=== PATIENT | female | born 1960 | race Caucasian/White ===

== ENCOUNTER 2020-02-22 09:45 | Outpatient (RCR) | payer OTHER, SELFPAY ==
--- NOTE | 2020-01-23 16:12 | PT.OIE ---
Current Diagnoses Pain in right elbow (01/23/20) Past Medical History (Last Reviewed 01/08/20 @ 07:31 by BIJAN Zuleta) Family history of colonic polyps (Acute) Skin lesion (Acute) Tennis elbow (Acute) Visit Care Team Role Provider Type BIJAN Zuleta Attending Provider Advanced Telecommunications Field Engineer Primary Care Provider Referring Provider Specialty: Medical Address: [address] [place] [address], [facility] Email: [email or web address] Physical Therapy Initial Evaluation PT-OP-A Visit Information Start: 01/21/20 07:31 Freq: Status: Active Protocol: Document 01/23/20 13:53 MB (Rec: 01/23/20 14:08 MB [id number]) Out-Patient Physical Therapy Visit Information Visit Information Visit Type Initial Evaluation Visit Note Uniform Medical [employer], managed by [facility] Pt arrives late to evaluation Visit Start Time 13:53 Visit Stop Time 14:30 Total Visit Minutes 37 Visit Number 1 Evaluation Information Evaluation Date 01/23/20 PT-OP-B Current Condition Start: 01/21/20 07:31 Freq: Status: Active Protocol: Document 01/23/20 13:53 MB (Rec: 01/23/20 14:08 MB [id number]) Current Condition History of Current Condition Onset Date 2-3 years Current Complaints Right lateral elbow pain with occ shooting pain. Pain up to 7/10 History of Current Condition Pt reports history of right elbow pain. She had three cortisone injections. The first helped and the second and third weren't as good as the first. The final injection was 6 weeks ago. 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 She has stabbing pain directly over the right epicondyle every or every other night. She sleeps on her right side with her right hand up under her pillow . She can't do yoga and sun salutations (cobra down). She moved in October and it exacerbated it. She has occ neck and shoulder pain. She cannot play pickle ball or tennis. She hasn't played for a year and a half. 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 Prior Treatments and Tests 3 cortisone injections Treatment Goals Patient/Caregiver Goals Pt's goal for therapy is to get back to yoga. PT-OP-C Subjective Start: 01/21/20 07:31 Freq: Status: Active Protocol: Document 01/23/20 13:53 MB (Rec: 01/23/20 14:32 MB [id number]) OP-PT Subjective Patient Comments Patient Comments See history of current condition Patient Questionnaires Quick Dash- Upper Extremity Quick Dash UE Impairment 20 to 39% Impaired (Score 20- 39) PT-OP-J Posture/Palpation/Skin Start: 01/21/20 07:31 Freq: Status: Active Protocol: Document 01/23/20 13:53 MB (Rec: 01/23/20 15:56 MB [id number]) Posture Evaluation Comments Posture Comments Forward head, rounded shoulders, increased lumbar lordosis, anterior pelvis, right iliac crest higher than the left Skin Assessment Other Assessments Skin Assessment Comments R elbow has ecchymosis over the lateral epicondyle which pt states is d/t injection 6 weeks ago PT-OP-K Range of Motion Start: 01/21/20 07:31 Freq: Status: Active Protocol: Document 01/23/20 13:53 MB (Rec: 01/23/20 15:57 MB [id number]) Cervical Spine Range of Motion Cervical Spine Active Testing Position Sitting Comments All ranges normal: flexion, extension, B SB and B rotation PT-OP-M Strength Start: 01/21/20 07:31 Freq: Status: Active Protocol: Document 01/23/20 13:53 MB (Rec: 01/23/20 16:11 MB [id number]) Shoulder Strength Shoulder Manual Muscle Testing Left Flexion 5 Normal Abduction (C5) 5 Normal External Rotation 5 Normal Internal Rotation 5 Normal Right Flexion 4 Good Abduction (C5) 5 Normal External Rotation 4 Good Internal Rotation 5 Normal Elbow/Forearm Strength Elbow and Forearm Manual Muscle Testing Left Flexion (C6) 5 Normal Extension (C7) 5 Normal Pronation 5 Normal Supination 5 Normal Right Flexion (C6) 5 Normal Extension (C7) 5 Normal Pronation 4 Good Supination 4 Good Comments Pt reports 3/10 pain with supination MMT Wrist Strength Wrist Manual Muscle Testing Right Flexion (C7) 5 Normal Extension (C6) 4 Good Comments Pt reports 3/10 pain with extension MMT Hand Senior Planning Analyst/Pinch Strength Hand Dominance Hand Dominance Right Hand Strength Left Comments 58 lb, 51 lb, 50 lb Right Comments 58 lb, 50 lb, 50 lb and no real c/o increased pain PT-OP-Q Treatments Start: 01/21/20 07:31 Freq: Status: Active Protocol: Document 01/23/20 13:53 MB (Rec: 01/23/20 16:11 MB [id number]) Self-Care/Home Management Treatment Education Other Education Proper sleeping position with towel roll support at neck in pillow, use of pillow between arms for support, wrist splint to wear loosely for sleeping to help with sleeping position and quick icing and PT quick ices right epicondyle today Lymphedema Treatment Other Other Pt denies sensory changes PT-OP-T Assessment and Plan Start: 01/21/20 07:31 Freq: Status: Active Protocol: Document 01/23/20 13:53 MB (Rec: 01/23/20 16:11 MB [id number]) Physical Therapy Assessment Rehab Potential Rehabilitation Potential Good Evaluation Complexity Number of Personal Factors/Comorbidities 1-2 Number of Body Systems Impaired 1-2 Clinical Presentation at Evaluation Stable Impairments Impairments Pain,Posture,Soft Tissue Mobility,Strength Goals 5 Pharmacy Customer Care Specialist Goal (LTG) Pt will perform progressive HEP with I including postural, flexibility, stabilization and strengthening exercises to improve strength and decrease pain by 03/25/2020. LTG Duration 8 weeks 4 Snf Goal (LTG) Pt will present with improved RUE strength to 5/5 shoulder flexion and ER, elbow supination and wrist extension to allow improved dominant hand use by 03/25/2020. LTG Duration 8 weeks 3 Snf Goal (LTG) Pt will report an overall 75% improvement in right elbow pain with sleeping by 2019. LTG Duration 8 weeks 2 Snf Goal (LTG) Pt will present with improved right field technical assistant strength over three trials to at least 60 lbs to reflect improved dominant hand strength by 03/25/2020. LTG Duration 8 weeks 1 Snf Goal (LTG) Pt will present with an improved QuickDASH score to reflect no more than 5% impairment to reflect improved function and less pain by . LTG Duration 8 weeks Assessment Summary Assessment Pt is a 59 y/o female presenting with chronic right elbow pain. She has also had three cortisone injections. She reports pain directly over the epicondyle and it is provoked with MMT elbow supination and wrist extension . She reports occ stabbing pain at night that awakens her . She performs activities that exacerbate her pain such as working on her boat. She would like to get back to yoga. Pt will benefit from PT to improve posture, flexibility, strength and pain. Barriers include chronicity of sxs and possible articular cartilage changes after three steroid injections. Physical Therapy Plan Frequency and Duration Frequency of Treatment 2x/Week Duration of Treatment 8 weeks Plan of Care Start Date 01/23/20 Plan of Care End Date 03/25/20 Therapeutic Interventions Therapeutic Interventions Aquatic Therapy,Canalithic Repositioning,Home Exercise Program,Joint Mobilizations, Manual Therapy,Neuromuscular Re-education,Patient/Caregiver Education,Self-Care/Home Management,Soft Tissue Mobilization,Taping, Therapeutic Exercises Modalities Cold Pack/Ice Massage,Electric Stimulation,Hot Packs, Ultrasound Next Visit Focus/Plan Next Note Type Treatment Note Next Visit Plan Initate manual work and exercises
--- NOTE | 2020-01-23 16:12 | PT.OPPOC ---
Physical, Occupational & Speech Therapy At [facility] Current Diagnoses Pain in right elbow (01/23/20) Visit Care Team Role Provider Type BIJAN Zuleta Attending Provider Advanced Poultry Debeaker Primary Care Provider Referring Provider Specialty: Medical Address: [address] [place] [address], [id number] Email: [email or web address] Plan Of Care PT-OP-T Assessment and Plan Start: 01/21/20 07:31 Freq: Status: Active Protocol: Document 01/23/20 13:53 MB (Rec: 01/23/20 16:11 MB [id number]) Physical Therapy Assessment Rehab Potential Rehabilitation Potential Good Evaluation Complexity Number of Personal Factors/Comorbidities 1-2 Number of Body Systems Impaired 1-2 Clinical Presentation at Evaluation Stable Impairments Impairments Pain,Posture,Soft Tissue Mobility,Strength Goals 5 Fdc Goal (LTG) Pt will perform progressive HEP with I including postural, flexibility, stabilization and strengthening exercises to improve strength and decrease pain by 03/25/2020. LTG Duration 8 weeks 4 Fdc Goal (LTG) Pt will present with improved RUE strength to 5/5 shoulder flexion and ER, elbow supination and wrist extension to allow improved dominant hand use by 03/25/2020. LTG Duration 8 weeks 3 Fdc Goal (LTG) Pt will report an overall 75% improvement in right elbow pain with sleeping by 2019. LTG Duration 8 weeks 2 Hand Printed Circuit Board Assembler Goal (LTG) Pt will present with improved right jewellery designer strength over three trials to at least 60 lbs to reflect improved dominant hand strength by 03/25/2020. LTG Duration 8 weeks 1 Hand Printed Circuit Board Assembler Goal (LTG) Pt will present with an improved QuickDASH score to reflect no more than 5% impairment to reflect improved function and less pain by . LTG Duration 8 weeks Assessment Summary Assessment Pt is a 59 y/o female presenting with chronic right elbow pain. She has also had three cortisone injections. She reports pain directly over the epicondyle and it is provoked with MMT elbow supination and wrist extension . She reports occ stabbing pain at night that awakens her . She performs activities that exacerbate her pain such as working on her boat. She would like to get back to yoga. Pt will benefit from PT to improve posture, flexibility, strength and pain. Barriers include chronicity of sxs and possible articular cartilage changes after three steroid injections. Physical Therapy Plan Frequency and Duration Frequency of Treatment 2x/Week Duration of Treatment 8 weeks Plan of Care Start Date 01/23/20 Plan of Care End Date 03/25/20 Therapeutic Interventions Therapeutic Interventions Aquatic Therapy,Canalithic Repositioning,Home Exercise Program,Joint Mobilizations, Manual Therapy,Neuromuscular Re-education,Patient/Caregiver Education,Self-Care/Home Management,Soft Tissue Mobilization,Taping, Therapeutic Exercises Modalities Cold Pack/Ice Massage,Electric Stimulation,Hot Packs, Ultrasound Next Visit Focus/Plan Next Note Type Treatment Note Next Visit Plan Initate manual work and exercises Plan of Care Dates Plan of Care Start Date 01/23/20 Plan of Care End Date 03/25/20 Electronically Signed by: Annie Smith PT 01/23/20 [id number] Please Sign and Return: I have reviewed this Plan of Care and certify that the skilled therapy services above are required to meet the patient?s needs. Physician Signature Date Printed Name and Credentials Clinical Instructor Signature Printed Name and Credentials
--- NOTE | 2020-01-28 14:10 | PT.OTN ---
Current Diagnoses Pain in right elbow (01/28/20) Physical Therapy Treatment Note PT-OP-A Visit Information Start: 01/21/20 07:31 Freq: Status: Active Protocol: Document 01/28/20 13:30 MB (Rec: 01/28/20 14:00 MB [id number]) Out-Patient Physical Therapy Visit Information Visit Information Visit Type Treatment Note Visit Start Time 13:30 Visit Stop Time 14:10 Total Visit Minutes 40 Visit Number 2 PT-OP-B Current Condition Start: 01/21/20 07:31 Freq: Status: Active Protocol: Document 01/23/20 13:53 MB (Rec: 01/23/20 14:08 MB [id number]) Current Condition History of Current Condition Onset Date 2-3 years Current Complaints Right lateral elbow pain with occ shooting pain. Pain up to 7/10 History of Current Condition Pt reports history of right elbow pain. She had three cortisone injections. The first helped and the second and third weren't as good as the first. The final injection was 6 weeks ago. 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 She has stabbing pain directly over the right epicondyle every or every other night. She sleeps on her right side with her right hand up under her pillow . She can't do yoga and sun salutations (cobra down). She moved in October and it exacerbated it. She has occ neck and shoulder pain. She cannot play pickle ball or tennis. She hasn't played for a year and a half. 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 Prior Treatments and Tests 3 cortisone injections Treatment Goals Patient/Caregiver Goals Pt's goal for therapy is to get back to yoga. PT-OP-C Subjective Start: 01/21/20 07:31 Freq: Status: Active Protocol: Document 01/28/20 13:30 MB (Rec: 01/28/20 14:00 MB [id number]) OP-PT Subjective Patient Comments Patient Comments Pt was only able to ice once as they were on the boat over the weekend. She did not have room to sleep with pillow between her arms. PT-OP-J Posture/Palpation/Skin Start: 01/21/20 07:31 Freq: Status: Active Protocol: Document 01/23/20 13:53 MB (Rec: 01/23/20 15:56 MB [id number]) Posture Evaluation Comments Posture Comments Forward head, rounded shoulders, increased lumbar lordosis, anterior pelvis, right iliac crest higher than the left Skin Assessment Other Assessments Skin Assessment Comments R elbow has ecchymosis over the lateral epicondyle which pt states is d/t injection 6 weeks ago PT-OP-K Range of Motion Start: 01/21/20 07:31 Freq: Status: Active Protocol: Document 01/23/20 13:53 MB (Rec: 01/23/20 15:57 MB [id number]) Cervical Spine Range of Motion Cervical Spine Active Testing Position Sitting Comments All ranges normal: flexion, extension, B SB and B rotation PT-OP-M Strength Start: 01/21/20 07:31 Freq: Status: Active Protocol: Document 01/23/20 13:53 MB (Rec: 01/23/20 16:11 MB [id number]) Shoulder Strength Shoulder Manual Muscle Testing Left Flexion 5 Normal Abduction (C5) 5 Normal External Rotation 5 Normal Internal Rotation 5 Normal Right Flexion 4 Good Abduction (C5) 5 Normal External Rotation 4 Good Internal Rotation 5 Normal Elbow/Forearm Strength Elbow and Forearm Manual Muscle Testing Left Flexion (C6) 5 Normal Extension (C7) 5 Normal Pronation 5 Normal Supination 5 Normal Right Flexion (C6) 5 Normal Extension (C7) 5 Normal Pronation 4 Good Supination 4 Good Comments Pt reports 3/10 pain with supination MMT Wrist Strength Wrist Manual Muscle Testing Right Flexion (C7) 5 Normal Extension (C6) 4 Good Comments Pt reports 3/10 pain with extension MMT Hand Outside Machinist Supervisor/Pinch Strength Hand Dominance Hand Dominance Right Hand Strength Left Comments 58 lb, 51 lb, 50 lb Right Comments 58 lb, 50 lb, 50 lb and no real c/o increased pain PT-OP-Q Treatments Start: 01/21/20 07:31 Freq: Status: Active Protocol: Document 01/28/20 13:30 MB (Rec: 01/28/20 14:00 MB [id number]) Therapeutic Exercises Supine Exercises Thoracic mobility horizontally over foam roller Comments Segmentally, support head with hands Pool noodle thoracic mobility and UE stretches--Ys, Ts, pect stretch Supine Exercise Name Pt to use 6 foam roller Comments 10 reps each Standing Exercises MWM infraspinatus, STM lats and intrascapular area racquet ball Comments Ed and performed today Manual Therapy Treatment Other Other Manual Treatments STM right forearm extensors and flexors, also MWM with PT hold trigger point and pt performing active wrist pronation and supination PT-OP-T Assessment and Plan Start: 01/21/20 07:31 Freq: Status: Active Protocol: Document 01/28/20 13:30 MB (Rec: 01/28/20 14:00 MB [id number]) Physical Therapy Assessment Rehab Potential Rehabilitation Potential Good Evaluation Complexity Number of Personal Factors/Comorbidities 1-2 Number of Body Systems Impaired 1-2 Clinical Presentation at Evaluation Stable Impairments Impairments Pain,Posture,Soft Tissue Mobility,Strength Goals 5 Long-Term Goal (LTG) Pt will perform progressive HEP with I including postural, flexibility, stabilization and strengthening exercises to improve strength and decrease pain by 03/25/2020. LTG Duration 8 weeks 4 Supervisor Water Softener Service Goal (LTG) Pt will present with improved RUE strength to 5/5 shoulder flexion and ER, elbow supination and wrist extension to allow improved dominant hand use by 03/25/2020. LTG Duration 8 weeks 3 Supervisor Water Softener Service Goal (LTG) Pt will report an overall 75% improvement in right elbow pain with sleeping by 2019. LTG Duration 8 weeks 2 Long-Term Goal (LTG) Pt will present with improved right manager of international strength over three trials to at least 60 lbs to reflect improved dominant hand strength by 03/25/2020. LTG Duration 8 weeks 1 Supervisor Water Softener Service Goal (LTG) Pt will present with an improved QuickDASH score to reflect no more than 5% impairment to reflect improved function and less pain by . LTG Duration 8 weeks Assessment Summary Assessment Progressed flexibility exercises today and will con't to progress and add strengthening. Physical Therapy Plan Frequency and Duration Frequency of Treatment 2x/Week Duration of Treatment 8 weeks Plan of Care Start Date 01/23/20 Plan of Care End Date 03/25/20 Therapeutic Interventions Therapeutic Interventions Aquatic Therapy,Canalithic Repositioning,Home Exercise Program,Joint Mobilizations, Manual Therapy,Neuromuscular Re-education,Patient/Caregiver Education,Self-Care/Home Management,Soft Tissue Mobilization,Taping, Therapeutic Exercises Modalities Cold Pack/Ice Massage,Electric Stimulation,Hot Packs, Ultrasound Next Visit Focus/Plan Next Note Type Treatment Note Next Visit Plan Progress exercises and manual work
--- NOTE | 2020-02-22 10:34 | PT.OTN ---
Current Diagnoses Pain in right elbow (02/22/20) Physical Therapy Treatment Note PT-OP-A Visit Information Start: 01/21/20 07:31 Freq: Status: Active Protocol: Document 02/22/20 09:50 MB (Rec: 02/22/20 10:29 MB [id number]) Out-Patient Physical Therapy Visit Information Visit Information Visit Type Treatment Note Visit Start Time 09:50 Visit Stop Time 10:30 Total Visit Minutes 40 Visit Number 3 PT-OP-B Current Condition Start: 01/21/20 07:31 Freq: Status: Active Protocol: Document 01/23/20 13:53 MB (Rec: 01/23/20 14:08 MB [id number]) Current Condition History of Current Condition Onset Date 2-3 years Current Complaints Right lateral elbow pain with occ shooting pain. Pain up to 7/10 History of Current Condition Pt reports history of right elbow pain. She had three cortisone injections. The first helped and the second and third weren't as good as the first. The final injection was 6 weeks ago. 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 She has stabbing pain directly over the right epicondyle every or every other night. She sleeps on her right side with her right hand up under her pillow . She can't do yoga and sun salutations (cobra down). She moved in October and it exacerbated it. She has occ neck and shoulder pain. She cannot play pickle ball or tennis. She hasn't played for a year and a half. 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 Prior Treatments and Tests 3 cortisone injections Treatment Goals Patient/Caregiver Goals Pt's goal for therapy is to get back to yoga. PT-OP-C Subjective Start: 01/21/20 07:31 Freq: Status: Active Protocol: Document 02/22/20 09:50 MB (Rec: 02/22/20 10:29 MB [id number]) OP-PT Subjective Patient Comments Patient Comments Pt had a lot going on. She took care of her sister after surgery. Her elbow is feeling better. She is cracking a lot in her back. PT-OP-J Posture/Palpation/Skin Start: 01/21/20 07:31 Freq: Status: Active Protocol: Document 01/23/20 13:53 MB (Rec: 01/23/20 15:56 MB [id number]) Posture Evaluation Comments Posture Comments Forward head, rounded shoulders, increased lumbar lordosis, anterior pelvis, right iliac crest higher than the left Skin Assessment Other Assessments Skin Assessment Comments R elbow has ecchymosis over the lateral epicondyle which pt states is d/t injection 6 weeks ago PT-OP-K Range of Motion Start: 01/21/20 07:31 Freq: Status: Active Protocol: Document 01/23/20 13:53 MB (Rec: 01/23/20 15:57 MB [id number]) Cervical Spine Range of Motion Cervical Spine Active Testing Position Sitting Comments All ranges normal: flexion, extension, B SB and B rotation PT-OP-M Strength Start: 01/21/20 07:31 Freq: Status: Active Protocol: Document 01/23/20 13:53 MB (Rec: 01/23/20 16:11 MB [id number]) Shoulder Strength Shoulder Manual Muscle Testing Left Flexion 5 Normal Abduction (C5) 5 Normal External Rotation 5 Normal Internal Rotation 5 Normal Right Flexion 4 Good Abduction (C5) 5 Normal External Rotation 4 Good Internal Rotation 5 Normal Elbow/Forearm Strength Elbow and Forearm Manual Muscle Testing Left Flexion (C6) 5 Normal Extension (C7) 5 Normal Pronation 5 Normal Supination 5 Normal Right Flexion (C6) 5 Normal Extension (C7) 5 Normal Pronation 4 Good Supination 4 Good Comments Pt reports 3/10 pain with supination MMT Wrist Strength Wrist Manual Muscle Testing Right Flexion (C7) 5 Normal Extension (C6) 4 Good Comments Pt reports 3/10 pain with extension MMT Hand Cyber Policy And Strategy Planner/Pinch Strength Hand Dominance Hand Dominance Right Hand Strength Left Comments 58 lb, 51 lb, 50 lb Right Comments 58 lb, 50 lb, 50 lb and no real c/o increased pain PT-OP-Q Treatments Start: 01/21/20 07:31 Freq: Status: Active Protocol: Document 02/22/20 09:50 MB (Rec: 02/22/20 10:29 MB [id number]) Therapeutic Exercises Standing Exercises Wax on and wax off with theraband Comments Level 1 band, alternating, made video Thread the needle against wall Comments B, form cued and pt make video MWM infraspinatus, STM lats and intrascapular area racquet ball Comments MWM infraspinatus and STM lats today, re-ed on position Other Exercises Downward dog with scapular retraction Comments Re-ed to improve thoracic stretch and hold as long as possible Manual Therapy Treatment Other Other Manual Treatments STM right forearm wrist flexors and extensors, increased tension in extensors PT-OP-T Assessment and Plan Start: 01/21/20 07:31 Freq: Status: Active Protocol: Document 02/22/20 09:50 MB (Rec: 02/22/20 10:29 MB [id number]) Physical Therapy Assessment Rehab Potential Rehabilitation Potential Good Evaluation Complexity Number of Personal Factors/Comorbidities 1-2 Number of Body Systems Impaired 1-2 Clinical Presentation at Evaluation Stable Impairments Impairments Pain,Posture,Soft Tissue Mobility,Strength Goals 5 Correction Goal (LTG) Pt will perform progressive HEP with I including postural, flexibility, stabilization and strengthening exercises to improve strength and decrease pain by 03/25/2020. LTG Duration 8 weeks 4 Appointment Manager Goal (LTG) Pt will present with improved RUE strength to 5/5 shoulder flexion and ER, elbow supination and wrist extension to allow improved dominant hand use by 03/25/2020. LTG Duration 8 weeks 3 Correction Goal (LTG) Pt will report an overall 75% improvement in right elbow pain with sleeping by 2019. LTG Duration 8 weeks 2 Correction Goal (LTG) Pt will present with improved right agronomy supervisor strength over three trials to at least 60 lbs to reflect improved dominant hand strength by 03/25/2020. LTG Duration 8 weeks 1 Appointment Manager Goal (LTG) Pt will present with an improved QuickDASH score to reflect no more than 5% impairment to reflect improved function and less pain by . LTG Duration 8 weeks Assessment Summary Assessment Progressed flexibility exercises today and will con't to progress and add strengthening. Physical Therapy Plan Frequency and Duration Frequency of Treatment 2x/Week Duration of Treatment 8 weeks Plan of Care Start Date 01/23/20 Plan of Care End Date 03/25/20 Therapeutic Interventions Therapeutic Interventions Aquatic Therapy,Canalithic Repositioning,Home Exercise Program,Joint Mobilizations, Manual Therapy,Neuromuscular Re-education,Patient/Caregiver Education,Self-Care/Home Management,Soft Tissue Mobilization,Taping, Therapeutic Exercises Modalities Cold Pack/Ice Massage,Electric Stimulation,Hot Packs, Ultrasound Next Visit Focus/Plan Next Note Type Treatment Note Next Visit Plan Progress exercises and manual work
--- NOTE | 2020-03-13 07:43 | PT.OPDS ---
Current Diagnoses Pain in right elbow (02/22/20) Visit Care Team Role Provider Type BIJAN Zuleta Attending Provider Advanced Assistant To The Dean Primary Care Provider Referring Provider Specialty: Medical Address: [address] [place] [address], [facility] Email: [email or web address] Visit Number Visit Number 3 Discharge Summary PT-OP-B Current Condition Start: 01/21/20 07:31 Freq: Status: Active Protocol: Document 01/23/20 13:53 MB (Rec: 01/23/20 14:08 MB [id number]) Current Condition History of Current Condition Onset Date 2-3 years Current Complaints Right lateral elbow pain with occ shooting pain. Pain up to 7/10 History of Current Condition Pt reports history of right elbow pain. She had three cortisone injections. The first helped and the second and third weren't as good as the first. The final injection was 6 weeks ago. 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 She has stabbing pain directly over the right epicondyle every or every other night. She sleeps on her right side with her right hand up under her pillow . She can't do yoga and sun salutations (cobra down). She moved in October and it exacerbated it. She has occ neck and shoulder pain. She cannot play pickle ball or tennis. She hasn't played for a year and a half. 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 Prior Treatments and Tests 3 cortisone injections Treatment Goals Patient/Caregiver Goals Pt's goal for therapy is to get back to yoga. PT-OP-C Subjective Start: 01/21/20 07:31 Freq: Status: Active Protocol: Document 02/22/20 09:50 MB (Rec: 02/22/20 10:29 MB [id number]) OP-PT Subjective Patient Comments Patient Comments Pt had a lot going on. She took care of her sister after surgery. Her elbow is feeling better. She is cracking a lot in her back. PT-OP-J Posture/Palpation/Skin Start: 01/21/20 07:31 Freq: Status: Active Protocol: Document 01/23/20 13:53 MB (Rec: 01/23/20 15:56 MB [id number]) Posture Evaluation Comments Posture Comments Forward head, rounded shoulders, increased lumbar lordosis, anterior pelvis, right iliac crest higher than the left Skin Assessment Other Assessments Skin Assessment Comments R elbow has ecchymosis over the lateral epicondyle which pt states is d/t injection 6 weeks ago PT-OP-K Range of Motion Start: 01/21/20 07:31 Freq: Status: Active Protocol: Document 01/23/20 13:53 MB (Rec: 01/23/20 15:57 MB [id number]) Cervical Spine Range of Motion Cervical Spine Active Testing Position Sitting Comments All ranges normal: flexion, extension, B SB and B rotation PT-OP-M Strength Start: 01/21/20 07:31 Freq: Status: Active Protocol: Document 01/23/20 13:53 MB (Rec: 01/23/20 16:11 MB [id number]) Shoulder Strength Shoulder Manual Muscle Testing Left Flexion 5 Normal Abduction (C5) 5 Normal External Rotation 5 Normal Internal Rotation 5 Normal Right Flexion 4 Good Abduction (C5) 5 Normal External Rotation 4 Good Internal Rotation 5 Normal Elbow/Forearm Strength Elbow and Forearm Manual Muscle Testing Left Flexion (C6) 5 Normal Extension (C7) 5 Normal Pronation 5 Normal Supination 5 Normal Right Flexion (C6) 5 Normal Extension (C7) 5 Normal Pronation 4 Good Supination 4 Good Comments Pt reports 3/10 pain with supination MMT Wrist Strength Wrist Manual Muscle Testing Right Flexion (C7) 5 Normal Extension (C6) 4 Good Comments Pt reports 3/10 pain with extension MMT Hand Flow Floor Attendant/Pinch Strength Hand Dominance Hand Dominance Right Hand Strength Left Comments 58 lb, 51 lb, 50 lb Right Comments 58 lb, 50 lb, 50 lb and no real c/o increased pain PT-OP-T Assessment and Plan Start: 01/21/20 07:31 Freq: Status: Active Protocol: Document 03/13/20 07:42 MB (Rec: 03/13/20 07:43 MB [id number]) Physical Therapy Plan Discharge Physical Therapy Discharge Reasons No Longer Attending PT Discharge Comments Pt con't to cancel appointments. Was feeling better last treatment. Has not been able to attend PT consistently. Left message for pt. Will d/c PT.
== END 2020-03-13 08:26 ==
LOC: PHYS 09:45
PROVIDERS: PCP Registered Nurse Diabetes Educator; Referring Provider Registered Nurse Diabetes Educator; Visit Provider Registered Nurse Diabetes Educator
DX: M25.521 Pain in right elbow (principal)
CPT/HCPCS: 97110; 97140; 97161; 97535

== ENCOUNTER → 2020-02-26 10:02 | Outpatient (CLI) | payer OTHER, SELFPAY ==
[2020-02-27 09:34] LABS: COVID19 Sendout Not Detected (Not Detect)
== END ==
PROVIDERS: PCP Registered Nurse Diabetes Educator; Visit Provider Physician Assistant
DX: Z11.59 Encounter for screening for other viral diseases (principal)
CPT/HCPCS: 87635

== ENCOUNTER 2020-02-29 07:29 | Day surgery (SDC) | payer OTHER, SELFPAY ==
[2020-02-29 07:49] VITALS: BP 144/78; PULSE 62; RESP 16; TEMP 36.5; O2SAT 99; BMI 21.9
--- NOTE | 2020-02-29 07:56 | PM.HP.1 ---
History of Present Illness History of Present Illness Date Patient Seen: 02/29/20 Time Patient Seen: 07:56 Chief complaint: SDC Narrative: Is a 70-year-old woman who had prior colonoscopy in 2011, with no abnormal findings. She has had 1 episode of rectal bleeding with diarrhea, but denies any persistent melena, hematochezia, unexplained abdominal pain, or unexplained weight loss. She has a history of sleep apnea, nausea with anesthesia, arthritis, headaches, depression. ROS: Thirteen system review is otherwise negative other than as mentioned below and in HPI. PE: GENERAL: Well groomed and cooperative. Appears stated age. Answers questions promptly and appropriately. Vital signs noted. HENT: Normocephalic, atraumatic. Hearing intact. EYES: Conjunctiva pink, sclera white, no periorbital swelling. CARDIOVASCULAR: Regular rate. No pedal edema. RESPIRATORY: Non-tachypneic, breathing comfortably on room air. GASTROINTESTINAL: Abdomen soft and non-distended GENITALURINARY: No flank tenderness. MUSCULOSKELETAL: Equal tone and mass bilaterally. SKIN: Warm, dry, soft, appropriate color for ethnicity. No other lesions, rashes, or wounds. NEURO: Alert and Oriented X 3. No gross sensory deficits, or cognitive issues. PSYCH: Appropriate affect and mood. Patient History Medical History Atrophic vaginitis (Acute) Family history of colonic polyps (Acute) Insomnia (Acute) Skin lesion (Acute) Tennis elbow (Acute) Family & Social History Tobacco & Substance use: Smoking Status Never smoker Meds Home Medications and Allergies Home Medications Medication Instructions Recorded Confirmed Type xoubrncdbhal-Pe-frio-minerals 1 tab PO DAILY 01/07/20 02/29/20 History sertraline 50 mg tablet 100 mg PO DAILY 01/07/20 02/29/20 History trazodone 50 mg tablet 50 mg PO BEDTIME PRN #30 tab 02/25/20 02/29/20 Rx Allergies Allergy/AdvReac Type Severity Reaction Status Date / Time codeine AdvReac Intermediate nausea Verified 02/26/20 10:08 anesthesia AdvReac Vomiting Uncoded 02/29/20 07:48 Assessment & Plan Assessment and plan (1) Family history of colonic polyps: Status: Acute Assessment & Plan narrative: Risks and benefits of screening colonoscopy and possible polypectomy were discussed with the patient including risk of bleeding, perforation, need for additional procedures, risks of anesthesia. The patient desires to proceed with the colonoscopy procedure. COVID-19 COVID-19 status: Negative Result date/Date tested (Pos, Neg/Pending): 02/26/20 Time Spent With Patient Time with patient: 15-24 minutes Quality VTE Deep Vein Thrombosis/Pulmonary Embolism Present on Admission: No
[2020-02-29] MEDS: SODIUM CHLORIDE 0.9% 1,000 ML 200 ML IV (08:00)
[2020-02-29] MEDS: ONDANSETRON 4 MG/2 ML INJ IV (08:01)
--- NOTE | 2020-02-29 08:01 | PM.OP.ENDO ---
Operative Date/Time/Diagnoses Date of procedure: 02/29/20 Time of procedure: 08:01 Pre-op diagnosis: Family history of colon polyps Post-op diagnosis: other (Tortuous colon, diverticulosis, no polyps found) Procedure & Clinicians Study performed: Colonoscopy Procedural sedation performed by endoscopist Same procedure as scheduled: Yes Indications: Family history of colon polyps, appropriate age for screening colonoscopy Surgeon: Carolyn Hale Procedure Notes SCOAP/Timeout: Performed Procedure in detail: The patient was brought to the room and placed in left lateral decubitus position with all bony prominences padded. A time-out was performed and then the patient was given procedural sedation starting with 2 mg of Versed and 100 mcg of fentanyl. A total of 4 mg of Versed and 150 micro g of fentanyl were given for the entire procedure. Vitals were monitored throughout the procedure and remained stable. Once adequately sedated, the procedure was begun. A rectal exam was performed revealing no abnormalities. The colonoscope was then introduced to the rectum and advanced to the cecum in the usual fashion. The colon was very tortuous and required multiple maneuvers in order to safely reach the cecum. The cecum was identified by the appendiceal orifice, the mucosal tri-fold, and the ileocecal valve. The scope was then retracted while rotating side to side and examining each mucosal fold. No polyps were seen. The patient does have monroe it diverticulosis in the descending and sigmoid colon. No signs of active diverticulitis. At the conclusion of the procedure retroflexion was performed and small grade 1-2 internal hemorrhoids without stigmata of bleeding were seen. The scope was then withdrawn from the rectum the procedure was concluded. The patient tolerated the procedure well and was transferred to the PACU in stable condition. Scope withdrawal time: 8 Sedation minutes: 23 Findings: diverticulosis and other findings (Very tortuous colon) Specimen(s): none sent Complications: none Impression: Very tortuous colon, no polyps, moderate diverticulosis through the descending and sigmoid colon Post-procedure Recommendations: Colonscopy in 10 years (So long as no new symptoms arise) Follow up: as needed Disposition: PACU
[2020-02-29] MEDS: fentaNYL 250 MCG/5 ML INJ IV (08:29)
[2020-02-29] MEDS: MIDAZOLAM 5 MG/5 ML VIAL IV (08:30)
[2020-02-29 08:34] VITALS: BP 107/73; PULSE 66; RESP 10; TEMP 36.2; O2SAT 96
[2020-02-29 08:39] VITALS: BP 99/66; PULSE 66; RESP 10; O2SAT 97
[2020-02-29 08:44] VITALS: BP 113/72; PULSE 67; RESP 12; O2SAT 99
[2020-02-29 08:50] VITALS: BP 103/70; PULSE 60; RESP 20; TEMP 36.2; O2SAT 97
--- NOTE | 2020-02-29 09:04 | SUR.PHASEII ---
Discharged patient home in stable condition with all belongings returned and discharge instructions. Home with in stable condition.
== END 2020-02-29 09:10 | disposition home or self-care (01) ==
PROVIDERS: PCP Registered Nurse Diabetes Educator; Referring Provider Registered Nurse Diabetes Educator; Visit Provider Surgery
PROC: 0DJD8ZZ Inspection of Lower Intestinal Tract, Via Natural or Artificial Opening Endoscopic (ICD-10-PCS; CPT 45378; principal; 2020-02-29 07:45)
DX: Z12.11 Encounter for screening for malignant neoplasm of colon (principal); Z83.71 Family history of colonic polyps; G47.30 Sleep apnea, unspecified; K57.30 Diverticulosis of large intestine without perforation or abscess without bleeding; K64.0 First degree hemorrhoids
CPT/HCPCS: 45378; 99152; J2250; J2405; J3010

== ENCOUNTER → 2020-04-22 08:04 | Outpatient (CLI) | payer OTHER, SELFPAY ==
--- NOTE | 2020-04-22 08:06 | DI.ECHO.S_ITS ---
[facility]---------+ [facility] +---------+ : : [address] : : : : [id number] : : : : Phone: [phone]+ Echocardiogram Report + + :Name: PONCE CANTRELL Study Date: 04/22/2020 Height: 66 in : :[facility] Weight: 135 lb : : Gender: Female BSA: 1.7 m2 : :: 1960 Age: 60 yrs BP: 114/75 mmHg: :Reason For Study: PALPITATIONS : :Ordering Physician: CAROL, : :JAZMIN Performed By: Madhuri Mcgraw : :Referring: JAZMIN MEDINA : + + Interpretation Summary The ejection fraction is estimated to be 60-65%. The right ventricular systolic pressure is estimated to be at least 27 mmHg based on an estimated right atrial pressure of 3 mm Hg. Procedure: A two-dimensional transthoracic echocardiogram with color flow and Doppler was performed. The study quality was technically adequate. There is no prior echocardiogram noted for this patient. Left Ventricle: The left ventricle is normal in size and wall thickness. The ejection fraction is estimated to be 60-65%. Left ventricular wall motion is normal. Diastolic parameters suggest probable normal left ventricular diastolic function and normal filling pressures. Right Ventricle: The right ventricle is normal in size and function. Atria: Both atria are normal in size. There is no Doppler evidence for an interatrial shunt. Mitral Valve: The mitral valve is normal in structure and function. There is trace mitral regurgitation. Aortic Valve: The aortic valve is trileaflet. The aortic valve opens well. There is no aortic valve stenosis. No aortic regurgitation is present. Tricuspid Valve: The tricuspid valve is normal in structure and function. The right ventricular systolic pressure is estimated to be at least 27 mmHg based on an estimated right atrial pressure of 3 mm Hg. There is mild tricuspid regurgitation. Pulmonic Valve: The pulmonic valve leaflets are thin and pliable; valve motion is normal. There is no pulmonic valvular regurgitation. Great Vessels: The aortic root is normal size. The dimensions of the ascending aorta are normal. The IVC is of normal diameter and collapses greater than 50% with a sniff. This suggests a low right atrial pressure of 3 mm Hg. Pericardium/ Pleura There is no pericardial effusion. There is no pleural effusion. MMode/2D Measurements & Calculations LVIDd: 4.7 cm LVOT diam: 2.1 cm LVIDs: 2.9 cm Ao root diam: 3.4 cm FS: 38.1 % asc Aorta Diam: 3.0 cm EPSS: 0.57 cm Ao Arch Diam (Prox Trans): 2.2 cm IVSd: 0.68 cm LVPWd: 0.61 cm LV davis. diameter/BSA (cm/m^2): 2.8 LV sys. diameter/BSA (cm/m^2): 1.7 LA A2 area: 16.6 cm2 RA long axis: 5.1 cm LA A4 area: 18.1 cm2 RA area: 15.0 cm2 LA length (vol): 5.1 cm RA vol: 37.4 ml LA vol: 49.9 ml RA : 22.1 ml/m2 LA vol index: 29.5 ml/m2 IVC diam: 1.7 cm RVD1 (basal): 3.4 cm TAPSE: 2.5 cm Doppler Measurements & Calculations Ao V2 max: 154.6 cm/sec LVOT Max Bulmaro: 107.7 cm/sec Ao V2 mean: 106.8 cm/sec LV V1 max P.6 mmHg Ao max P.6 mmHg LV V1 VTI: 25.1 cm Ao mean P.2 mmHg GALILEA(I,D): 2.2 cm2 Ao V2 VTI: 37.8 cm GALILEA(V,D): 2.4 cm2 sev ratio: 0.66 GALILEA indexed to BSA (cm^2/m^2): 1.3 MV E max bulmaro: 78.7 cm/sec TR max bulmaro: 227.5 cm/sec MV A max bulmaro: 84.9 cm/sec TR max P.8 mmHg MV E/A: 0.93 PA V2 max: 67.4 cm/sec Med Peak E' Bulmaro: 7.1 cm/sec PA V2 mean: 43.7 cm/sec E/E' med: 11.1 PA mean P.90 mmHg Lat Peak E' Bulmaro: 10.4 cm/sec PA pr(Accel): 29.3 mmHg E/E' lat: 7.5 E/e' average: 9.3 MV dec time: 0.19 sec SV(OT): 85.1 ml Reading Physician:09:26 AM
== END ==
PROVIDERS: PCP Registered Nurse Diabetes Educator; Referring Provider Registered Nurse Diabetes Educator; Visit Provider Registered Nurse Diabetes Educator
DX: I07.1 Rheumatic tricuspid insufficiency (principal); R00.2 Palpitations
CPT/HCPCS: 93306

== ENCOUNTER → 2020-04-23 13:07 | Outpatient (CLI) | payer OTHER, SELFPAY ==
--- NOTE | 2020-05-14 07:58 | P.HOLT.S_ITS ---
Occupational Medicine Physician Report Referral & Results Date Patient Seen: 04/23/20 Requesting provider: Marco Antonio Montgomery Indication: Palpitations Duration of monitoring (days): 6 Diary information: There were 113 patient triggered events and 13 patient diary entries Patient triggered events were associated with (within 45 seconds) sinus rhythm, PVCs, PACs, and ventricular trigeminy Patient diary events were associated with (within 45 seconds) sinus rhythm, PVCs and ventricular trigeminy Data: Minimum heart rate identified was 40 beats per minute at 01:16 on 04/28/2020 Maximum heart rate was 155 beats per minute at 13:28 on 04/26/2020 Less than 1% of identified beats or either ventricular supraventricular ectopic in origin Patient did have a 1 minutes 18 second run of ventricular trigeminy There was 1 run of SVT/atrial tachycardia lasting 4 beats at a rate of 120 beats per minute (which suggest probably atrial tachycardia rather than true SVT) Impression: No serious dysrhythmias identified on this study Patient has relatively rare PVCs and PACs however based on patient triggered events and patient diary entries it seems most likely sense of palpitations is due to simple PVCs, although PACs also are present and could be a source of symptoms. Clinical correlation suggested
== END ==
PROVIDERS: PCP Registered Nurse Diabetes Educator; Referring Provider Registered Nurse Diabetes Educator; Visit Provider Registered Nurse Diabetes Educator
DX: R00.2 Palpitations (principal)
CPT/HCPCS: 0296T; 0298T

== ENCOUNTER 2020-05-24 11:24 | Emergency (ER) | payer OTHER, SELFPAY ==
[2020-05-24 11:31] VITALS: BMI 21.7
--- NOTE | 2020-05-24 11:37 | DI.RAD.S_ITS ---
PROCEDURE: XR CHEST 1V INDICATIONS: chest pain TECHNIQUE: One view of the chest was acquired. COMPARISON: None. FINDINGS: Surgical changes and devices: None. Lungs and pleura: Lungs are clear. No pleural effusions or pneumothorax. Mediastinum: Mediastinal contours appear normal. Heart size is normal. Bones and chest wall: No suspicious bony lesions. Overlying soft tissues appear unremarkable. IMPRESSION: Portable chest within normal limits. Dictated by: Christophe Dudley M.D. on 05/24/2020 at 11:00 Approved by: Christophe Dudley M.D. on 05/24/2020 at 11:02
[2020-05-24 11:39] VITALS: BP 148/77; PULSE 65; RESP 16; TEMP 36.7; O2SAT 100; O2SAT 99
--- NOTE | 2020-05-24 11:49 | ED_ITS ---
HPI - Arrhythmia/Palpitations General Chief Complaint: Arrhythmia/Palpitations Stated Complaint: ONGOING HEART PALPITATIONS Time Seen by Provider: 05/24/20 11:45 Source: patient Mode of arrival: Ambulatory History of Present Illness HPI narrative: 60-year-old woman with a history of mild depression, postmenopausal who has been having palpitations over the last number of months. She has been seen by her primary care physician is had an event monitor as well as an echocardiogram done both of which were reassuringly normal. She comes in today with increased severity of palpitations on her initially EKG demonstrates 1:1 bigeminy. She reports minimal caffeine use, no stimulants either herbal, weight loss, recreational or illicit. Related Data Home Medications Medication Instructions Recorded Confirmed agllpbiwnvpz-Wh-ouex-minerals 1 tab PO DAILY 01/07/20 05/14/20 Previous Rx's Medication Instructions Recorded estradiol 1 vaginalrin VAG [id number] #1 each 05/14/20 sertraline 100 mg tablet 50 mg PO DAILY #45 tab 05/14/20 trazodone 50 mg tablet 50 mg PO BEDTIME PRN #90 tab 05/14/20 Allergies Allergy/AdvReac Type Severity Reaction Status Date / Time codeine AdvReac Intermediate nausea Verified 05/24/20 11:33 anesthesia AdvReac Vomiting Uncoded 05/24/20 11:33 Review of Systems Review of Systems Narrative: Pertinent positive and negative findings as per HPI Remainder of review of systems is otherwise unremarkable for Constitutional: Fevers, chills, weakness ENT: No sore throat, neck pain, ear pain CV: Chest pain, dyspnea on exertion Respiratory: Cough, wheeze, dyspnea GI: Nausea, vomiting, diarrhea, change in bowel habits, black or bloody stools : Dysuria, hematuria, flank pain MS: Muscle weakness, numbness, joint swelling or warmth Skin: Rashes, nonhealing lesions Neuro: Syncope, dizziness, tingling Patient History Medical History (Updated 05/24/20 @ 13:53 by Yaneli Ricci MD) Atrophic vaginitis Family history of colonic polyps Insomnia Palpitations Skin lesion Tennis elbow Social History household members: spouse Smoking Status: Never smoker alcohol intake: current Smoking Status: Never smoker alcohol intake frequency: 0-2 drinks per day Substance Use Type: marijuana Exam Narrative Exam Narrative: General: Healthy appearing, in no acute distress. Able to give a complete and coherent history. Well-nourished well-developed HEENT: Moist mucous membranes, normal sclera with reactive pupils, Neck: No JVD, supple Respiratory: Lungs are clear to auscultation, no wheezing no rales no rhonchi. Full and symmetrical air movement Cardiac: Regular rate and rhythm no murmurs no bruits Abdomen: Soft nontender good bowel tones, no flank pain Skin: Warm and dry, no rashes Neurologic: Grossly neurologically intact with no obvious asymmetries or abnormalities Extremities: No trauma, well perfused Psych: Cooperative, appropriate insight and affect Initial Vital Signs Initial Vital Signs: Vital Signs Temperature 98.1 F 05/24/20 11:39 Pulse Rate 65 05/24/20 11:39 Respiratory Rate 16 05/24/20 11:39 Blood Pressure 148/77 H 05/24/20 11:39 Pulse Oximetry 99 05/24/20 11:39 Course Orders Ordered: ED Orders 05/24/20 11:33 EKG-12 Lead Stat 05/24/20 11:37 XR chest 1V Stat 05/24/20 11:52 Complete Blood Count AUTO DIFF Stat Comprehensive Metabolic Panel Stat Lipase Stat Magnesium Stat Partial Thromboplastin Time Stat Prothrombin Time INR Stat Troponin & CK Cardiac Panel Stat 05/24/20 12:10 COVID19 Stat Discontinued Medications Metoprolol Tartrate (Metoprolol Ir 25 Mg Tablet) 25 mg PO NOW ONE Stop: 05/24/20 11:55 Last Admin: 05/24/20 12:10 Dose: 25 mg Documented by: AYAH Vital Signs Vital signs: Vital Signs - 8 hr 05/24/20 11:39 05/24/20 12:00 05/24/20 12:30 Temperature 98.1 F Pulse Rate 65 66 66 Respiratory Rate 16 29 H 16 Blood Pressure 148/77 H Pulse Oximetry 100 98 100 05/24/20 13:00 05/24/20 13:14 05/24/20 13:30 Temperature Pulse Rate 65 64 74 Respiratory Rate 19 19 19 Blood Pressure 132/76 126/71 Pulse Oximetry 100 100 100 MDM - Arrhythmia/Palpitations Medical Records Attestation: I reviewed the patient's medical records. Lab Data Attestation: I reviewed the patient's lab results. Result diagrams: 05/24/20 11:52 05/24/20 11:52 Labs: Lab Results 05/24/20 05/24/20 05/24/20 Range/Units 11:52 11:52 11:52 WBC 6.0 (4.5-11.0) X10^3/uL RBC 4.56 (4.0-5.2) X10^6/uL Hgb 14.3 (12.0-16.0) g/dL Hct 41.7 (36-46) % MCV 91.4 (80-100) fL MCH 31.5 (26-34) PG MCHC 34.4 (30-36) % RDW 12.2 (11.6-14.8) % Plt Count 242 (150-400) X10^3/uL Neut % (Auto) 50.2 (50-75) % Lymph % (Auto) 38.0 (25-40) % Camp % (Auto) 8.1 (3-14) % Eos % (Auto) 2.8 (2-4) % Baso % (Auto) 0.9 (0-2) % Neut # (Auto) 3000 (1831-9255) /uL Lymph # (Auto) 2300 (9226-6778) /uL Camp # (Auto) 500 (0-900) /uL Eos # (Auto) 200 (0-450) /uL Baso # (Auto) 100 (0-100) /uL PT 12.8 H (10.1-12.7) SECONDS INR 1.1 (0.9-1.3) APTT 33 (26.4-36.2) SECONDS Sodium 140 (137-145) mmol/L Potassium 4.0 (3.4-5.1) mmol/L Chloride 107 (98-107) mmol/L Carbon Dioxide 29 (22-32) mmol/L BUN 18 H (7-17) mg/dL Creatinine 0.55 (0.52-1.04) mg/dL Estimated GFR > 60.0 (>60) mL/min BUN/Creatinine Ratio 32.7 H (6-22) Glucose 111 H (70-100) mg/dL Calcium 9.4 (8.4-10.2) mg/dL Magnesium (1.6-2.3) mg/dL Total Bilirubin 0.6 (0.2-1.3) mg/dL AST 28 (14-36) IU/L ALT 24 (<35) IU/L Alkaline Phosphatase 53 (38-126) U/L Total Creatine Kinase 48 (30-135) U/L CK-MB (CK-2) TNP CK-MB (CK-2) Rel Index TNP Troponin I < 0.012 (0.01-0.034) ng/mL Total Protein 7.5 (6.3-8.2) g/dL Albumin 4.3 (3.5-5.0) g/dL Globulin 3.2 (1.7-4.1) g/dL Albumin/Globulin Ratio 1.3 (1.0-2.8) Lipase 69 (23-300) U/L COVID-19 PCR (Negative) 05/24/20 05/24/20 Range/Units 11:52 12:10 WBC (4.5-11.0) X10^3/uL RBC (4.0-5.2) X10^6/uL Hgb (12.0-16.0) g/dL Hct (36-46) % MCV (80-100) fL MCH (26-34) PG MCHC (30-36) % RDW (11.6-14.8) % Plt Count (150-400) X10^3/uL Neut % (Auto) (50-75) % Lymph % (Auto) (25-40) % Camp % (Auto) (3-14) % Eos % (Auto) (2-4) % Baso % (Auto) (0-2) % Neut # (Auto) (4348-5989) /uL Lymph # (Auto) (1491-7746) /uL Camp # (Auto) (0-900) /uL Eos # (Auto) (0-450) /uL Baso # (Auto) (0-100) /uL PT (10.1-12.7) SECONDS INR (0.9-1.3) APTT (26.4-36.2) SECONDS Sodium (137-145) mmol/L Potassium (3.4-5.1) mmol/L Chloride (98-107) mmol/L Carbon Dioxide (22-32) mmol/L BUN (7-17) mg/dL Creatinine (0.52-1.04) mg/dL Estimated GFR (>60) mL/min BUN/Creatinine Ratio (6-22) Glucose (70-100) mg/dL Calcium (8.4-10.2) mg/dL Magnesium 2.0 (1.6-2.3) mg/dL Total Bilirubin (0.2-1.3) mg/dL AST (14-36) IU/L ALT (<35) IU/L Alkaline Phosphatase (38-126) U/L Total Creatine Kinase (30-135) U/L CK-MB (CK-2) CK-MB (CK-2) Rel Index Troponin I (0.01-0.034) ng/mL Total Protein (6.3-8.2) g/dL Albumin (3.5-5.0) g/dL Globulin (1.7-4.1) g/dL Albumin/Globulin Ratio (1.0-2.8) Lipase (23-300) U/L COVID-19 PCR Negative (Negative) Imaging Data Echo 04/22/2020: Radiologist's Impresson: :Name: PONCE CANTRELL Study Date: 04/22/2020 Height: 66 in : :[facility] Weight: 135 lb : : Gender: Female BSA: 1.7 m2 : :: 1960 Age: 60 yrs BP: 114/75 mmHg: :Reason For Study: PALPITATIONS : :Ordering Physician: CAROL, : :MARCO ANTONIO Performed By: Madhuri Mcgraw : :Referring: MARCO ANTONIO MEDINA : + + Interpretation Summary The ejection fraction is estimated to be 60-65%. The right ventricular systolic pressure is estimated to be at least 27 mmHg based on an estimated right atrial pressure of 3 mm Hg. Procedure: A two-dimensional transthoracic echocardiogram with color flow and Doppler was performed. The study quality was technically adequate. There is no prior echocardiogram noted for this patient. Left Ventricle: The left ventricle is normal in size and wall thickness. The ejection fraction is estimated to be 60-65%. Left ventricular wall motion is normal. Diastolic parameters suggest probable normal left ventricular diastolic function and normal filling pressures. Right Ventricle: The right ventricle is normal in size and function. Atria: Both atria are normal in size. There is no Doppler evidence for an interatrial shunt. Mitral Valve: The mitral valve is normal in structure and function. There is trace mitral regurgitation. Aortic Valve: The aortic valve is trileaflet. The aortic valve opens well. There is no aortic valve stenosis. No aortic regurgitation is present. Tricuspid Valve: The tricuspid valve is normal in structure and function. The right ventricular systolic pressure is estimated to be at least 27 mmHg based on an estimated right atrial pressure of 3 mm Hg. There is mild tricuspid regurgitation. Pulmonic Valve: The pulmonic valve leaflets are thin and pliable; valve motion is normal. There is no pulmonic valvular regurgitation. Great Vessels: The aortic root is normal size. The dimensions of the ascending aorta are normal. The IVC is of normal diameter and collapses greater than 50% with a sniff. This suggests a low right atrial pressure of 3 mm Hg. Pericardium/ Pleura There is no pericardial effusion. There is no pleural effusion. ECG Data Attestation: I personally reviewed and interpreted this ECG as follows: Interpretation: Bigeminy at a rate of 75 beats per minute Normal axis Nonspecific ST T wave abnormalities MDM Narrative Medical decision making narrative: 60-year-old woman with continued complaints of palpitations. Today is clearly having bigeminy and the remainder of her workup is otherwise unremarkable. There is no evidence of acute coronary syndrome or ischemia. Normal chest x-ray with normal cardiac silhouette. Clinical exam is unremarkable. She is given a dose of 25 mg of immediate release metoprolol in the emergency department and there is a slight decrease in overall PVCs. She remains hemodynamically stable. We discussed options and causes. At this point there is no clear etiology for the excessive PVCs. She does have a follow-up appointment with a medical staff coordinator i n early July. Will give her copies of today's EKGs, recent echocardiogram, chest x-ray and blood work from today's visit as well. Have suggested that she use metoprolol tartrate 25 mg b.i.d.. Have suggested that she take this as scheduled for a full week and then try decreasing the dosage to times when she is most symptomatic. Have asked that she buy a blood pressure cuff to keep track of both blood pressure and heart rate. She also has appointment with her primary care provider in the near future. At this time she is safe for home discharge Discharge Plan Departure Patient Disposition: Home Clinical Impression: Frequent PVCs Instructions: Premature Ventricular Beats Activity Restrictions/Additional Instructions: Thank you for coming in today You are having frequent premature ventricular contractions and that is causing the palpitations. This morning they are so frequent that your having 1 regular beat and 1 irregular beat together, we call this bigeminy. Although this is annoying, it is not life-threatening nor is it an indication of impending heart attack or significant structural or medical heart damage. Your recent echocardiogram was also equally reassuring. At this time I am going to suggest that you start taking metoprolol tartrate 25 mg twice a day to decrease the frequent premature contractions. This medicine is also a blood pressure medication. I would recommend that you buy a blood pressure cuff and check your blood pressures, documenting the numbers to review with your primary care provider and medical staff coordinator when you talk with them. You may find that you have days where you prefer to take a single dose of metoprolol because your having frequent irregularities and days where your feeling just fine and she used to not use the metoprolol at all If you are having palpitations that are associated with pain, diaphoresis, shortness of breath, nausea or other concerning symptoms it would be very appropriate to return to the emergency room Prescriptions: No Action mtbtmihgstns-Oq-exwv-minerals 1 tab PO DAILY RF: 0 Estring 2 mg (7.5 mcg /24 hour) ring 1 vaginalrin VAG [id number] Qty: 1 RF: 3 sertraline 100 mg tablet 50 mg PO DAILY Qty: 45 RF: 3 trazodone 50 mg tablet 50 mg PO BEDTIME PRN (Reason: insomnia) Qty: 90 RF: 3 Referrals: Marco Antonio Medina ARNP [Primary Care Provider] -
--- NOTE | 2020-05-24 11:58 | PC.NURSE ---
reports some dizziness with palpitations. Patient has had palpitations intermittently since jul. Has had several EKG, ECHO and heart monitor with no conclusion. Symptoms have escalated over last 72hrs.
[2020-05-24 12:00] VITALS: PULSE 66; RESP 29; O2SAT 98
[2020-05-24 12:01] LABS: Add Manual Diff / Slide Review NO; Basophils Absolute Auto 100 /uL (0-100); Basophils Percent Auto 0.9 % (0-2); Eosinophils Absolute Auto 200 /uL (0-450); Eosinophils Percent Auto 2.8 % (2-4); Hematocrit 41.7 % (36-46); Hemoglobin 14.3 g/dL (12.0-16.0); Lymphocytes Absolute Auto 2300 /uL (1100-4500); Mean Corpuscular HGB Conc 34.4 % (30-36); Mean Corpuscular Hemoglobin 31.5 PG (26-34); Mean Corpuscular Volume 91.4 fL (80-100); Monocytes Absolute Auto 500 /uL (0-900); Monocytes Percent Auto 8.1 % (3-14); Neutrophils Absolute Auto 3000 /uL (1500-7000); Neutrophils Percent Auto 50.2 % (50-75); Platelet Count 242 X10^3/uL (150-400); Red Blood Cell Count 4.56 X10^6/uL (4.0-5.2); Red Cell Distribution Width 12.2 % (11.6-14.8)
[2020-05-24 12:09] LABS: INR 1.1 (0.9-1.3); Prothrombin Time 12.8 SECONDS (10.1-12.7)
[2020-05-24] MEDS: METOPROLOL IR 25 MG TABLET PO (12:10)
[2020-05-24 12:12] LABS: PTT Partial Thromboplastin Tim 33 SECONDS (26.4-36.2)
[2020-05-24 12:13] LABS: Alanine Aminotransferase 24 IU/L (<35); Albumin 4.3 g/dL (3.5-5.0); Albumin Globulin Ratio 1.3 (1.0-2.8); Alkaline Phosphatase 53 U/L (38-126); Aspartate Aminotransferase 28 IU/L (14-36); BUN Creatinine Ratio 32.7 (6-22); Bilirubin Total 0.6 mg/dL (0.2-1.3); Blood Urea Nitrogen 18 mg/dL (7-17); Calcium 9.4 mg/dL (8.4-10.2); Carbon Dioxide 29 mmol/L (22-32); Chloride 107 mmol/L (98-107); Creatine Kinase 48 U/L (30-135); Estimated Glomerular Filt Rate > 60.0 mL/min (>60); Globulin 3.2 g/dL (1.7-4.1); Glucose 111 mg/dL (70-100); HEMOLYSIS < 15 (0-50); Lipase 69 U/L (23-300); Sodium 140 mmol/L (137-145); Total Protein 7.5 g/dL (6.3-8.2)
[2020-05-24 12:25] LABS: Troponin I < 0.012 ng/mL (0.01-0.034)
[2020-05-24 12:30] VITALS: PULSE 66; RESP 16; O2SAT 100
[2020-05-24 12:39] LABS: COVID19 -Nasal RAPID Negative (Negative)
[2020-05-24 13:00] VITALS: PULSE 65; RESP 19; O2SAT 100
[2020-05-24 13:14] VITALS: BP 132/76; PULSE 64; RESP 19; O2SAT 100
[2020-05-24 13:30] VITALS: BP 126/71; PULSE 74; RESP 19; O2SAT 100
== END 2020-05-24 14:05 | disposition home or self-care (01) ==
PROVIDERS: Emergency Provider Emergency Medicine; PCP Registered Nurse Diabetes Educator
DX: I49.3 Ventricular premature depolarization (principal); R07.9 Chest pain, unspecified
CPT/HCPCS: 36415; 71045; 80053; 82550; 83690; 83735; 84484; 85025; 85610; 85730; 87635; 93005; 99283; 99284

== ENCOUNTER 2020-06-19 12:47 | Emergency (ER) | payer OTHER, SELFPAY ==
[2020-06-19] VITALS (7 sets, daily range): BP systolic 111–134; BP diastolic 57–68; PULSE 53–61; RESP 13–21; TEMP 36.7; O2SAT 98–100; BMI 21.7
--- NOTE | 2020-06-19 12:59 | DI.RAD.S_ITS ---
PROCEDURE: XR CHEST 1V INDICATIONS: chest pain TECHNIQUE: One view of the chest was acquired. COMPARISON: [facility], CR, XR CHEST 1V, 05/24/2020, 11:43. FINDINGS: Surgical changes and devices: None. Lungs and pleura: Lungs are clear. No pleural effusions or pneumothorax. Mediastinum: Mediastinal contours appear normal. Heart size is normal. Bones and chest wall: No suspicious bony lesions. Overlying soft tissues appear unremarkable. Multiple old right rib fractures are noted. IMPRESSION: No acute cardiopulmonary disease. Dictated by: Kathryn Heaton M.D. on 06/19/2020 at 13:30 Approved by: Kathryn Heaton M.D. on 06/19/2020 at 13:30
--- NOTE | 2020-06-19 13:02 | ED_ITS ---
HPI - Chest Pain <BIJAN Hernandez - Last Filed: 06/19/20 21:20> General Chief Complaint: Chest Pain Stated Complaint: Heart Palpitaions, Light Headed, Lethargic Time Seen by Provider: 06/19/20 12:50 Source: patient Mode of arrival: Ambulatory Limitations: no limitations History of Present Illness HPI narrative: 60yo female with a history of depression, presents emergency department for worsening palpitations over the past week and fatigue and dizziness that started this morning. Patient states she was seen in the emergency department on 05/23/20 for palpitations, was seen to be in [place] [facility] insert a metoprolol at that time. Previous your visit she had an echocardiogram that was nonremarkable and had worn a residential monitor. Patient states the metoprolol was improving symptoms until last week. She states the fatigue and dizziness started this morning when she woke. He denies any chest pain, cough, abdominal pain, nausea, vomiting, diarrhea, vision changes, or any other c oncerns. She denies palpitations at this time. She states the palpitations were worse last night. Related Data Home Medications Medication Instructions Recorded Confirmed kigyiwnqdhzs-Eo-llll-minerals 1 tab PO DAILY 01/07/20 06/18/20 Previous Rx's Medication Instructions Recorded estradiol 1 vaginalrin VAG [id number] #1 each 05/14/20 sertraline 100 mg tablet 50 mg PO DAILY #45 tab 05/14/20 trazodone 50 mg tablet 50 mg PO BEDTIME PRN #90 tab 05/14/20 metoprolol tartrate 25 mg tablet 25 mg PO BID #60 tab 06/18/20 Allergies Allergy/AdvReac Type Severity Reaction Status Date / Time codeine AdvReac Intermediate nausea Verified 06/19/20 12:58 anesthesia AdvReac Vomiting Uncoded 05/24/20 11:33 Review of Systems <BIJAN Hernandez - Last Filed: 06/19/20 21:20> Review of Systems Narrative: REVIEW OF SYSTEMS: GENERAL: Denies fever or chills. HENT: No head trauma. EYES: No loss of vision. CARDIOVASCULAR: Reports palpitations, see HPI.. RESPIRATORY: No cough. GASTROINTESTINAL: No nausea, vomiting, diarrhea, or constipation. GENITOURINARY: No flank pain or dysuria. MUSCULOSKELETAL: No pain. INTEGUMENTARY: No rash. NEURO: No numbness or tingling. PSYCH: No behavior or mood changes. Patient History <BIJAN Hernandez - Last Filed: 06/19/20 21:20> Medical History Atrophic vaginitis Family history of colonic polyps Insomnia Palpitations Skin lesion Tennis elbow Social History household members: spouse Smoking Status: Never smoker alcohol intake: current Smoking Status: Never smoker alcohol intake frequency: 3 or more drinks per day Alcohol type: beer Substance Use Type: marijuana Exam <BIJAN Hernandez - Last Filed: 06/19/20 21:20> Initial Vital Signs Initial Vital Signs: Vital Signs Temperature 98.1 F 06/19/20 12:53 Pulse Rate 53 L 06/19/20 12:53 Respiratory Rate 13 06/19/20 12:53 Blood Pressure 134/68 06/19/20 12:53 Pulse Oximetry 100 06/19/20 12:53 PHYSICAL EXAMINATION: GENERAL: Awake and alert, appears to have fatigue. No distress. HENT: Normocephalic, atraumatic. EYES: Conjunctiva pink, sclera white, no periorbital swelling. CHEST: Normal to inspection and without deformities. CARDIOVASCULAR: S1 and S2 sounds normal. Regular rate and rhythm, no murmurs, c licks, or bruits. No pedal edema. RESPIRATORY: Normal respiratory rate, trachea midline, airway patent. No stridor, nasal flaring or accessory muscle use. Lungs are clear in all javier without wheeze, rhonchi, or crackles. GASTROINTESTINAL: Bowel sounds normoactive. Abdomen is soft and non-tender. No organomegaly. MUSCULOSKELETAL: Normal gait and coordination. Equal tone and mass bilaterally. EXTREMITIES: CMS intact. Moves all extremities. SKIN: Warm, dry, soft, appropriate color for ethnicity. No lesions, rashes, or wounds. NEURO: Alert and Oriented X 3. Good coordination. No ataxia, or sensory deficits, or cognitive issues. PSYCH: Appropriate affect and mood. <Leatha Bassett DO - Last Filed: 06/23/20 20:06> Initial Vital Signs Initial Vital Signs: Vital Signs Temperature 98.1 F 06/19/20 12:53 Pulse Rate 53 L 12/17/20 12:53 Respiratory Rate 13 06/19/20 12:53 Blood Pressure 134/68 06/19/20 12:53 Pulse Oximetry 100 06/19/20 12:53 Course <BIJAN Hernandez - Last Filed: 06/19/20 21:20> Course Course Narrative: I Had extensive conversation with patient about the importance of follow-up. We discussed the palpations can occur without electrical activity and PVCs can occur without palpitations. Orders Ordered: Discontinued Medications Sodium Chloride (Normal Saline 0.9%) 1,000 mls @ 1,000 mls/hr IV BOLUS ONE Stop: 06/19/20 13:58 Last Infusion: 06/19/20 14:23 Dose: 0 mls/hr Documented by: Admin: 06/19/20 13:13 Dose: 1,000 mls/hr Documented by: MMINOR Consultations Consultation #1: Patient staffed with Dr. Bassett Vital Signs Vital signs: Vital Signs - 8 hr 06/19/20 13:30 06/19/20 15:53 Pulse Rate 57 L Pulse Rate [Orthostatic Sitting] 61 Pulse Rate [Orthostatic Standing] 55 L Respiratory Rate 18 Blood Pressure 111/57 L Blood Pressure [Orthostatic Lying] 113/62 Blood Pressure [Orthostatic Sitting] 132/67 Blood Pressure [Orthostatic Standing] 125/63 Pulse Oximetry 98 <Leatha Bassett DO - Last Filed: 06/23/20 20:06> Orders Ordered: Discontinued Medications Sodium Chloride (Normal Saline 0.9%) 1,000 mls @ 1,000 mls/hr IV BOLUS ONE Stop: 06/19/20 13:58 Last Infusion: 06/19/20 14:23 Dose: 0 mls/hr Documented by: Admin: 06/19/20 13:13 Dose: 1,000 mls/hr Documented by: MMINOR Vital Signs Vital signs: Vital Signs - 8 hr 06/19/20 13:30 06/19/20 15:53 Pulse Rate 57 L Pulse Rate [Orthostatic Sitting] 61 Pulse Rate [Orthostatic Standing] 55 L Respiratory Rate 18 Blood Pressure 111/57 L Blood Pressure [Orthostatic Lying] 113/62 Blood Pressure [Orthostatic Sitting] 132/67 Blood Pressure [Orthostatic Standing] 125/63 Pulse Oximetry 98 [facility] Chest Pain <Yolis Fontanez CIRCULAR [employer]WYER HELPER - Last Filed: 06/19/20 21:20> Medical Records Data Attestation: I reviewed the patient's medical records. Lab Data Attestation: I reviewed the patient's lab results. Result diagrams: 06/19/20 12:59 06/19/20 12:59 Labs: Lab Results 06/19/20 06/19/20 06/19/20 Range/Units 12:59 12:59 12:59 WBC 7.1 (4.5-11.0) X10^3/uL RBC 4.67 (4.0-5.2) X10^6/uL Hgb 14.4 (12.0-16.0) g/dL Hct 43.3 (36-46) % MCV 92.6 (80-100) fL MCH 30.8 (26-34) PG MCHC 33.3 (30-36) % RDW 12.4 (11.6-14.8) % Plt Count 228 (150-400) X10^3/uL Neut % (Auto) 58.1 (50-75) % Lymph % (Auto) 31.9 (25-40) % [place] % (Auto) 6.6 (3-14) % Eos % (Auto) 2.5 (2-4) % Baso % (Auto) 0.9 (0-2) % Neut # (Auto) 4100 (6183-0767) /uL Lymph # (Auto) 2300 (3626-8012) /uL [place] # (Auto) 500 (0-900) /uL Eos # (Auto) 200 (0-450) /uL Baso # (Auto) 100 (0-100) /uL Sodium 140 (137-145) mmol/L Potassium 4.3 (3.4-5.1) mmol/L Chloride 104 (98-107) mmol/L Carbon Dioxide 29 (22-32) mmol/L BUN 17 (7-17) mg/dL Creatinine 0.51 L (0.52-1.04) mg/dL Estimated GFR > 60.0 (>60) mL/min BUN/Creatinine Ratio 33.3 H (6-22) Glucose 127 H (70-100) mg/dL Calcium 9.4 (8.4-10.2) mg/dL Total Bilirubin 0.7 (0.2-1.3) mg/dL AST 27 (14-36) IU/L ALT 24 (<35) IU/L Alkaline Phosphatase 57 (38-126) U/L Total Creatine Kinase 42 (30-135) U/L CK-MB (CK-2) TNP CK-MB (CK-2) Rel Index TNP Troponin I < 0.012 (0.01-0.034) ng/mL Total Protein 8.0 (6.3-8.2) g/dL Albumin 4.8 (3.5-5.0) g/dL Globulin 3.2 (1.7-4.1) g/dL Albumin/Globulin Ratio 1.5 (1.0-2.8) Lipase 84 (23-300) U/L TSH 1.76 (0.47-4.68) uIU/mL Urine RBC (0-5/HPF) Urine WBC (0-5/HPF) Urine Bacteria (None) Ur Culture Indicated? Micro UA Comment COVID-19 PCR (Negative) 06/19/20 06/19/20 Range/Units 14:15 14:27 WBC (4.5-11.0) X10^3/uL RBC (4.0-5.2) X10^6/uL Hgb (12.0-16.0) g/dL Hct (36-46) % MCV (80-100) fL MCH (26-34) PG MCHC (30-36) % RDW (11.6-14.8) % Plt Count (150-400) X10^3/uL Neut % (Auto) (50-75) % Lymph % (Auto) (25-40) % [place] % (Auto) (3-14) % Eos % (Auto) (2-4) % Baso % (Auto) (0-2) % Neut # (Auto) (1334-5938) /uL Lymph # (Auto) (5165-4064) /uL [place] # (Auto) (0-900) /uL Eos # (Auto) (0-450) /uL Baso # (Auto) (0-100) /uL Sodium (137-145) mmol/L Potassium (3.4-5.1) mmol/L Chloride (98-107) mmol/L Carbon Dioxide (22-32) mmol/L BUN (7-17) mg/dL Creatinine (0.52-1.04) mg/dL Estimated GFR (>60) mL/min BUN/Creatinine Ratio (6-22) Glucose (70-100) mg/dL Calcium (8.4-10.2) mg/dL Total Bilirubin (0.2-1.3) mg/dL AST (14-36) IU/L ALT (<35) IU/L Alkaline Phosphatase (38-126) U/L Total Creatine Kinase (30-135) U/L CK-MB (CK-2) CK-MB (CK-2) Rel Index Troponin I (0.01-0.034) ng/mL Total Protein (6.3-8.2) g/dL Albumin (3.5-5.0) g/dL Globulin (1.7-4.1) g/dL Albumin/Globulin Ratio (1.0-2.8) Lipase (23-300) U/L TSH (0.47-4.68) uIU/mL Urine RBC None seen (0-5/HPF) Urine WBC None seen (0-5/HPF) Urine Bacteria None seen (None) Ur Culture Indicated? Cult not indicated Micro UA Comment Microscopic normal COVID-19 PCR Negative (Negative) Urine Dip Bedside Urine Glucose Negative Bedside Urine Bilirubin - Negative Bedside Urine Ketone - Negative Urine Specific [place] 1.015 Bedside Urine Occult Blood - Negative Bedside Urine pH 6.5 Bedside Urine Protein - Negative Bedside Urine Urobilinogen - Negative Bedside Urine Nitrite - Negative Bedside Urine Leukocytes + 70 Esterase Imaging Data Chest x-ray: Radiologist's Impression: [address] [id number] ReportSigned Patient: Marion Lozano LMR#: [id number]: 1Acct:[id number]/Sex: 60 / FDate of Service: 06/19/20Loc: EDAccession Number: [id number] Procedure: XR chest 1V Ordering Provider: Yolis Fontanez PROCEDURE: XR CHEST 1V INDICATIONS: chest pain TECHNIQUE: One view of the chest was acquired. COMPARISON: [facility], CR, XR CHEST 1V, 05/24/2020, 11:43. FINDINGS: Surgical changes and devices: None. Lungs and pleura: Lungs are clear. No pleural effusions or pneumothorax. Mediastinum: Mediastinal contours appear normal. Heart size is normal. Bones and chest wall: No suspicious bony lesions. Overlying soft tissues appear unremarkable. Multiple old right rib fractures are noted. IMPRESSION: No acute cardiopulmonary disease. Dictated by: Kathryn Heaton M.D. on 06/19/2020 at 13:30 Approved by: Kathryn Heaton M.D. on 06/19/2020 at 13:30 ECG Data Interpretation: 1258: Sinus rhythm, rate 54, DE interval 154. QTC 394. No ST elevation or ST depression. T-wave inversion in V1. No ectopy. EKG also viewed by Dr. Bassett per protocol. MDM Narrative Medical decision making narrative: 60-year-old female presents emergency department with fatigue and palpitations. I suspect patient's fatigue and dizziness is most likely related to metoprolol. I am unsure the exact cause of patient's palpation, this may be related to occasional PVCs seen on the monitor, there were short runs of bigeminy initially when patient was stating she was symptom free. No significant PVC seen when patient was complaining of palpitations. Her recent echo is unremarkable. Less concern for ACS given normal EKG, normal chest x-ray, lack of chest pain, and negative troponin. We discussed decreasing metoprolol dose, discussed risks and benefits and that palpitations may increased. Discussed that patient can cut the pill in half and take half in the morning and half at night. No other signs of infection, abdominal exam within normal limits, COVID test negative. Urine without signs of infection. She was encouraged to follow up with PCP in the next week for further evaluation. She was also encouraged to follow up with engineering and scientific programmer. Return precautions given for new or worsening symptoms and agreed to plan of care. <Leatha Bassett, DO - Last Filed: 06/23/20 20:06> Lab Data Labs: Lab Results 06/19/20 06/19/20 06/19/20 Range/Units 12:59 12:59 12:59 WBC 7.1 (4.5-11.0) X10^3/uL RBC 4.67 (4.0-5.2) X10^6/uL Hgb 14.4 (12.0-16.0) g/dL Hct 43.3 (36-46) % MCV 92.6 (80-100) fL MCH 30.8 (26-34) PG MCHC 33.3 (30-36) % RDW 12.4 (11.6-14.8) % Plt Count 228 (150-400) X10^3/uL Neut % (Auto) 58.1 (50-75) % Lymph % (Auto) 31.9 (25-40) % [place] % (Auto) 6.6 (3-14) % Eos % (Auto) 2.5 (2-4) % Baso % (Auto) 0.9 (0-2) % Neut # (Auto) 4100 (3818-6286) /uL Lymph # (Auto) 2300 (6748-2238) /uL [place] # (Auto) 500 (0-900) /uL Eos # (Auto) 200 (0-450) /uL Baso # (Auto) 100 (0-100) /uL Sodium 140 (137-145) mmol/L Potassium 4.3 (3.4-5.1) mmol/L Chloride 104 (98-107) mmol/L Carbon Dioxide 29 (22-32) mmol/L BUN 17 (7-17) mg/dL Creatinine 0.51 L (0.52-1.04) mg/dL Estimated GFR > 60.0 (>60) mL/min BUN/Creatinine Ratio 33.3 H (6-22) Glucose 127 H (70-100) mg/dL Calcium 9.4 (8.4-10.2) mg/dL Total Bilirubin 0.7 (0.2-1.3) mg/dL AST 27 (14-36) IU/L ALT 24 (<35) IU/L Alkaline Phosphatase 57 (38-126) U/L Total Creatine Kinase 42 (30-135) U/L CK-MB (CK-2) TNP CK-MB (CK-2) Rel Index TNP Troponin I < 0.012 (0.01-0.034) ng/mL Total Protein 8.0 (6.3-8.2) g/dL Albumin 4.8 (3.5-5.0) g/dL Globulin 3.2 (1.7-4.1) g/dL Albumin/Globulin Ratio 1.5 (1.0-2.8) Lipase 84 (23-300) U/L TSH 1.76 (0.47-4.68) uIU/mL Urine RBC (0-5/HPF) Urine WBC (0-5/HPF) Urine Bacteria (None) Ur Culture Indicated? Micro UA Comment COVID-19 PCR (Negative) 06/19/20 06/19/20 Range/Units 14:15 14:27 WBC (4.5-11.0) X10^3/uL RBC (4.0-5.2) X10^6/uL Hgb (12.0-16.0) g/dL Hct (36-46) % MCV (80-100) fL MCH (26-34) PG MCHC (30-36) % RDW (11.6-14.8) % Plt Count (150-400) X10^3/uL Neut % (Auto) (50-75) % Lymph % (Auto) (25-40) % [place] % (Auto) (3-14) % Eos % (Auto) (2-4) % Baso % (Auto) (0-2) % Neut # (Auto) (1084-9640) /uL Lymph # (Auto) (6809-4332) /uL [place] # (Auto) (0-900) /uL Eos # (Auto) (0-450) /uL Baso # (Auto) (0-100) /uL Sodium (137-145) mmol/L Potassium (3.4-5.1) mmol/L Chloride (98-107) mmol/L Carbon Dioxide (22-32) mmol/L BUN (7-17) mg/dL Creatinine (0.52-1.04) mg/dL Estimated GFR (>60) mL/min BUN/Creatinine Ratio (6-22) Glucose (70-100) mg/dL Calcium (8.4-10.2) mg/dL Total Bilirubin (0.2-1.3) mg/dL AST (14-36) IU/L ALT (<35) IU/L Alkaline Phosphatase (38-126) U/L Total Creatine Kinase (30-135) U/L CK-MB (CK-2) CK-MB (CK-2) Rel Index Troponin I (0.01-0.034) ng/mL Total Protein (6.3-8.2) g/dL Albumin (3.5-5.0) g/dL Globulin (1.7-4.1) g/dL Albumin/Globulin Ratio (1.0-2.8) Lipase (23-300) U/L TSH (0.47-4.68) uIU/mL Urine RBC None seen (0-5/HPF) Urine WBC None seen (0-5/HPF) Urine Bacteria None seen (None) Ur Culture Indicated? Cult not indicated Micro UA Comment Microscopic normal COVID-19 PCR Negative (Negative) Urine Dip Bedside Urine Glucose Negative Bedside Urine Bilirubin - Negative Bedside Urine Ketone - Negative Urine Specific [place] 1.015 Bedside Urine Occult Blood - Negative Bedside Urine pH 6.5 Bedside Urine Protein - Negative Bedside Urine Urobilinogen - Negative Bedside Urine Nitrite - Negative Bedside Urine Leukocytes + 70 Esterase Discharge Plan Departure Patient Disposition: Home Clinical Impression: Heart palpitations Instructions: DI for Arrhythmias Activity Restrictions/Additional Instructions: Thank you for entrusting me with your care today. As discussed, your laboratory work, chest x-ray, COVID-19, and urine are negative for any concerning symptoms. You have very short runs of bigeminy but otherwise your rhythm is normal. Try decreasing your metoprolol to a 1/2 a pill morning and night, this may reduce fatigue and dizziness. Please follow-up with your engineering and scientific programmer as scheduled. Follow up with your primary care provider in the next 1-2 weeks for further evaluation. Return em ergency department for any new or worsening symptoms. Prescriptions: No Action [id number]-uruh-minerals 1 tab PO DAILY RF: 0 Estring 2 mg (7.5 mcg /24 hour) ring 1 vaginalrin VAG [id number] Qty: 1 RF: 3 sertraline 100 mg tablet 50 mg PO DAILY Qty: 45 RF: 3 trazodone 50 mg tablet 50 mg PO BEDTIME PRN (Reason: insomnia) Qty: 90 RF: 3 metoprolol tartrate 25 mg tablet 25 mg PO BID Qty: 60 RF: 0 Referrals: Marco Antonio Montgomery ARNP [Primary Care Provider] - <Leatha Bassett DO - Last Filed: 06/23/20 20:06> Cosign ED Attending Cosignature Attestation: I was immediately available in the department for consultation. This documentation has been reviewed and I agree with assessment and plan. EKG reviewed by myself. Supervised by Leatha Bassett,
[2020-06-19] MEDS: SODIUM CHLORIDE 0.9% 1,000 ML 1000 ML IV (13:13)
[2020-06-19 13:14] LABS: Add Manual Diff / Slide Review NO; Basophils Absolute Auto 100 /uL (0-100); Basophils Percent Auto 0.9 % (0-2); Eosinophils Absolute Auto 200 /uL (0-450); Eosinophils Percent Auto 2.5 % (2-4); Hematocrit 43.3 % (36-46); Hemoglobin 14.4 g/dL (12.0-16.0); Lymphocytes Absolute Auto 2300 /uL (1100-4500); Lymphocytes Percent Auto 31.9 % (25-40); Mean Corpuscular HGB Conc 33.3 % (30-36); Mean Corpuscular Hemoglobin 30.8 PG (26-34); Mean Corpuscular Volume 92.6 fL (80-100); Monocytes Absolute Auto 500 /uL (0-900); Monocytes Percent Auto 6.6 % (3-14); Neutrophils Absolute Auto 4100 /uL (1500-7000); Neutrophils Percent Auto 58.1 % (50-75); Platelet Count 228 X10^3/uL (150-400); Red Blood Cell Count 4.67 X10^6/uL (4.0-5.2); Red Cell Distribution Width 12.4 % (11.6-14.8); White Blood Cell Count 7.1 X10^3/uL (4.5-11.0)
--- NOTE | 2020-06-19 13:25 | PC.NURSE ---
pt c/o weakness and fatigue that started this AM
[2020-06-19 13:26] LABS: Alanine Aminotransferase 24 IU/L (<35); Albumin 4.8 g/dL (3.5-5.0); Albumin Globulin Ratio 1.5 (1.0-2.8); Alkaline Phosphatase 57 U/L (38-126); Aspartate Aminotransferase 27 IU/L (14-36); BUN Creatinine Ratio 33.3 (6-22); Bilirubin Total 0.7 mg/dL (0.2-1.3); Blood Urea Nitrogen 17 mg/dL (7-17); Calcium 9.4 mg/dL (8.4-10.2); Carbon Dioxide 29 mmol/L (22-32); Chloride 104 mmol/L (98-107); Creatine Kinase 42 U/L (30-135); Estimated Glomerular Filt Rate > 60.0 mL/min (>60); Globulin 3.2 g/dL (1.7-4.1); Glucose 127 mg/dL (70-100); HEMOLYSIS 19 (0-50); Lipase 84 U/L (23-300); Potassium 4.3 mmol/L (3.4-5.1); Sodium 140 mmol/L (137-145)
[2020-06-19 13:37] LABS: Troponin I < 0.012 ng/mL (0.01-0.034)
[2020-06-19 14:20] LABS: Bacteria Urine None Seen; RBC Urine None Seen (0-5/HPF); WBC Urine None Seen (0-5/HPF)
[2020-06-19 14:25] LABS: Culture Indicated Urine Cult Not Indicated; Urine Comments Microscopic Normal
[2020-06-19 14:25] LABS: Thyroid Stimulating Hormone 1.76 uIU/mL (0.47-4.68)
[2020-06-19 15:10] LABS: COVID19 -Nasal RAPID Negative (Negative)
== END 2020-06-19 16:25 | disposition home or self-care (01) ==
PROVIDERS: Emergency Provider Nurse Practitioner; PCP Registered Nurse Diabetes Educator
DX: R00.2 Palpitations (principal); R07.9 Chest pain, unspecified; F32.9 Major depressive disorder, single episode, unspecified; R53.83 Other fatigue; R42 Dizziness and giddiness; Z20.828 Contact with and (suspected) exposure to other viral communicable diseases
CPT/HCPCS: 36415; 71045; 80053; 81003; 81015; 82550; 83690; 84443; 84484; 85025; 87635; 93005; 93010; 96360; 99283; 99284

== ENCOUNTER → 2020-08-08 12:14 | Outpatient (CLI) | payer OTHER, SELFPAY ==
--- NOTE | 2020-08-08 12:15 | DI.CT.S_ITS ---
PROCEDURE: CT ANGIO CHEST INDICATIONS: Chest pain TECHNIQUE: After the administration of intravenous contrast, 2 mm thick sections acquired from the pulmonary apices to the posterior costophrenic angles. 3-dimensional maximum intensity projection (MIP) coronal and sagittal reformats were then acquired through the thorax. For radiation dose reduction, the following was used: automated exposure control, adjustment of mA and/or kV according to patient size. COMPARISON: [facility], CR, XR CHEST 1V, 05/24/2020, 11:43. [facility], CR, XR CHEST 1V, 06/19/2020, 13:10. FINDINGS: Image quality: Excellent. Pulmonary arteries: Pulmonary arteries are normal in size, and demonstrate no intraluminal filling defects to suggest central pulmonary embolism. Lungs and pleura: There are a couple 3 mm ground-glass nodule in the right upper lobe (series 5, image 72 and 73). Lungs are otherwise clear. No pleural effusions or pneumothorax. Central and peripheral airways are patent. Mediastinum: Heart size is normal, without pericardial effusion. Mild atherosclerotic calcification of coronary artery. No mediastinal or hilar adenopathy. Thoracic aorta is normal in caliber and enhancement. Esophagus is normal in caliber. Small hiatal hernia. Bones and chest wall: No suspicious bony lesions. Old healed right 4th, 5th, 6th and 7th rib fractures are noted. The thoracic spine is intact. Thyroid gland is normal. No axillary or supraclavicular adenopathy. Abdomen: Visualized upper abdominal solid organs appear normal in the early arterial phase of enhancement. IMPRESSION: 1. No evidence for pulmonary embolism. 2. A couple of 3 mm right upper lobe nodule. Please see enclosed follow-up recommendation. 3. Old healed right rib fractures. Fleischner Society criteria for SOLID lung nodule followup. Nodule size (mm)Low-risk patientHigh-risk patient?4No follow-up neededFollow-up at 12 mo; if no change, no further follow-up>[id number] CT at 12 mo; if no change, no further follow-up needed.Initial follow-up CT at 6-12 mo, then 18-24 mo if no change. >6-8Initial follow-up CT at 6-12 mo, then 18-24 mo if no change. Initial follow-up CT at 3-6 mo, then 9-12 mo and 24 mo if no change. >8Follow-up CT at 3, 9, 24 mo. Or PET and/or biopsy.Same as for low-risk pts. Dictated by: Kathryn Heaton M.D. on 08/08/2020 at 12:52 Approved by: Kathryn Heaton M.D. on 08/08/2020 at 13:00
== END ==
PROVIDERS: PCP Internal Medicine; Referring Provider Internal Medicine; Visit Provider Internal Medicine
DX: R07.9 Chest pain, unspecified (principal); R00.2 Palpitations; R91.8 Other nonspecific abnormal finding of lung field
CPT/HCPCS: 71275

== ENCOUNTER → 2020-09-20 12:05 | Outpatient (CLI) | payer OTHER, SELFPAY ==
[2020-09-20 13:27] LABS: Estimated Glomerular Filt Rate > 60.0 mL/min (>60)
[2020-09-20 22:58] LABS: Cancer Antigen 125 5.8 U/mL (0-35)
== END ==
PROVIDERS: PCP Internal Medicine; Referring Provider Obstetrics & Gynecology; Visit Provider Obstetrics & Gynecology
DX: N83.202 Unspecified ovarian cyst, left side (principal)
CPT/HCPCS: 36415; 82565; 86304

== ENCOUNTER → 2021-08-12 07:10 | Outpatient (CLI) | payer OTHER, SELFPAY ==
[2021-08-12 07:54] LABS: Add Manual Diff / Slide Review NO; Basophils Absolute Auto 100 /uL (0-100); Basophils Percent Auto 0.9 % (0-2); Eosinophils Absolute Auto 200 /uL (0-450); Eosinophils Percent Auto 3.8 % (2-4); Hematocrit 38.5 % (36-46); Hemoglobin 13.1 g/dL (12.0-16.0); Lymphocytes Absolute Auto 2300 /uL (1100-4500); Lymphocytes Percent Auto 40.1 % (25-40); Mean Corpuscular HGB Conc 34.1 % (30-36); Mean Corpuscular Hemoglobin 30.9 PG (26-34); Mean Corpuscular Volume 90.5 fL (80-100); Monocytes Absolute Auto 400 /uL (0-900); Monocytes Percent Auto 6.5 % (3-14); Neutrophils Absolute Auto 2700 /uL (1500-7000); Neutrophils Percent Auto 48.7 % (50-75); Platelet Count 229 X10^3/uL (150-400); Red Blood Cell Count 4.26 X10^6/uL (4.0-5.2); Red Cell Distribution Width 12.6 % (11.6-14.8); White Blood Cell Count 5.6 X10^3/uL (4.5-11.0)
[2021-08-12 08:09] LABS: BUN Creatinine Ratio 25.5 (6-22); Blood Urea Nitrogen 13 mg/dL (7-17); Calcium 9.3 mg/dL (8.4-10.2); Carbon Dioxide 29 mmol/L (22-32); Chloride 107 mmol/L (98-107); Cholesterol 193 mg/dL (140-199); Estimated Glomerular Filt Rate > 60.0 mL/min (>60); Glucose 92 mg/dL (80-110); HDL Cholesterol 49 mg/dL (40-60); HEMOLYSIS 30 (0-50); LDL Cholesterol Calculated 122 mg/dL (<100); Potassium 4.2 mmol/L (3.4-5.1); Sodium 138 mmol/L (137-145); Triglycerides 108 mg/dL (35-150)
[2021-08-12 08:23] LABS: Vitamin D 25 Hydroxy (D3) 56.1 ng/mL (30.0-100.0)
[2021-08-12 08:37] LABS: TSH w/ Reflex to FT4 3.07 uIU/mL (0.47-4.68)
== END ==
PROVIDERS: PCP Family Medicine; Referring Provider Family Medicine; Visit Provider Family Medicine
DX: G47.33 Obstructive sleep apnea (adult) (pediatric) (principal); R00.2 Palpitations; Z13.21 Encounter for screening for nutritional disorder; Z13.220 Encounter for screening for lipoid disorders
CPT/HCPCS: 36415; 80048; 80061; 82306; 84443; 85025

== ENCOUNTER 2021-10-01 11:18 | Emergency (ER) | payer OTHER, SELFPAY ==
[2021-10-01 11:24] VITALS: BP 161/72; PULSE 77; RESP 16; TEMP 36.7; O2SAT 100; BMI 22.1
--- NOTE | 2021-10-01 11:34 | DI.RAD.S_ITS ---
PROCEDURE: XR CHEST 1V INDICATIONS: chest pain TECHNIQUE: One view of the chest was acquired. COMPARISON: [facility], CR, XR CHEST 1V, 06/19/2020, 13:10. FINDINGS: Surgical changes and devices: None. Lungs and pleura: Lungs are clear. No pleural effusions or pneumothorax. Mediastinum: Mediastinal contours appear normal. Heart size is normal. Bones and chest wall: Old healed right posterior 5th through 9th rib fractures are seen. No suspicious bony lesions. Overlying soft tissues appear unremarkable. IMPRESSION: No acute cardiopulmonary pathology. Old healed right posterior rib fractures. Dictated by: Tom Mandel M.D. on 10/01/2021 at 12:23 Approved by: Tom Mandel M.D. on 10/01/2021 at 12:24
[2021-10-01 11:54] LABS: Add Manual Diff / Slide Review NO; Basophils Absolute Auto 100 /uL (0-100); Basophils Percent Auto 1.3 % (0-2); Eosinophils Absolute Auto 200 /uL (0-450); Eosinophils Percent Auto 3.3 % (2-4); Hematocrit 37.7 % (36-46); Hemoglobin 13.2 g/dL (12.0-16.0); Lymphocytes Absolute Auto 1900 /uL (1100-4500); Lymphocytes Percent Auto 42.6 % (25-40); Mean Corpuscular HGB Conc 34.9 % (30-36); Mean Corpuscular Hemoglobin 31.2 PG (26-34); Mean Corpuscular Volume 89.4 fL (80-100); Monocytes Absolute Auto 400 /uL (0-900); Monocytes Percent Auto 8.8 % (3-14); Neutrophils Absolute Auto 2000 /uL (1500-7000); Platelet Count 219 X10^3/uL (150-400); Red Blood Cell Count 4.22 X10^6/uL (4.0-5.2); Red Cell Distribution Width 12.6 % (11.6-14.8); White Blood Cell Count 4.5 X10^3/uL (4.5-11.0)
[2021-10-01 11:57] VITALS: PULSE 63; RESP 15; O2SAT 100
[2021-10-01 12:00] VITALS: BP 134/66; PULSE 61; RESP 17; O2SAT 99
[2021-10-01 12:06] LABS: Alanine Aminotransferase 19 IU/L (<35); Albumin 4.6 g/dL (3.5-5.0); Albumin Globulin Ratio 1.5 (1.0-2.8); Alkaline Phosphatase 57 U/L (38-126); Aspartate Aminotransferase 29 IU/L (14-36); BUN Creatinine Ratio 28.1 (6-22); Bilirubin Total 0.7 mg/dL (0.2-1.3); Blood Urea Nitrogen 16 mg/dL (7-17); Calcium 9.1 mg/dL (8.4-10.2); Carbon Dioxide 26 mmol/L (22-32); Chloride 106 mmol/L (98-107); Creatine Kinase 58 U/L (30-135); Estimated Glomerular Filt Rate > 60.0 mL/min (>60); Globulin 3.1 g/dL (1.7-4.1); Glucose 77 mg/dL (80-110); HEMOLYSIS < 15 (0-50); Lipase 54 U/L (23-300); Magnesium 1.9 mg/dL (1.6-2.3); Potassium 3.9 mmol/L (3.4-5.1); Sodium 140 mmol/L (137-145); Total Protein 7.7 g/dL (6.3-8.2)
[2021-10-01 12:18] LABS: Troponin I < 0.012 ng/mL (0.01-0.034)
[2021-10-01 12:30] VITALS: BP 124/77; PULSE 62; RESP 15; O2SAT 99
--- NOTE | 2021-10-01 13:09 | ED_ITS ---
HPI - Chest Pain <Samuel Vu PA-C - Last Filed: 10/01/21 13:36> General Chief Complaint: Chest Pain Stated Complaint: SOB Aching in chest, woke up in night with high HR Time Seen by Provider: 10/01/21 12:55 Source: patient Mode of arrival: Ambulatory Limitations: no limitations History of Present Illness HPI narrative: Patient is a 61-year-old female who presents to the ED for evaluation of an episode rapid heartbeat and associated chest pain and shortness of breath. Patient reports that last night around 3:00 a.m. she awoken from her sleep feeling her heart rate elevated she stated that it lasted about 5 minutes and resolved and she was able to go back to sleep. During her morning walk today she experienced some shortness of breath. She had contacted her cardiology office this morning and she mentioned these symptoms and they suggested her coming to the ED for evaluation. During her stay at the ER she denies any recurrence of her rapid heartbeat or her shortness of breath. The only symptoms she is describing now is a general ache in the epigastric region that is very nonspecific. Nothing seems to make it better nothing seems to make it worse. She denies any previous acute PA or stroke. She states that she had a cardiac ablation for bigeminy done within the last year. Patient denies any fever cough congestion runny nose nausea vomiting diarrhea. Patient patient's vital signs remained stable. Related Data Home Medications Medication Instructions Recorded Confirmed cwnxbcttxdek-Ih-zxmm-minerals 1 tab PO DAILY 01/07/20 03/18/21 [Maximum Daily Multivitamin] Previous Rx's Medication Instructions Recorded trazodone 50 mg tablet 50 mg PO BEDTIME PRN #90 tab 09/17/21 Massage therapy #1 ea 10/05/21 Allergies Allergy/AdvReac Type Severity Reaction Status Date / Time codeine AdvReac Intermediate nausea Verified 03/18/21 14:15 anesthesia AdvReac Vomiting Uncoded 03/18/21 14:15 Review of Systems <Samuel Vu PA-C - Last Filed: 10/01/21 13:36> Review of Systems ROS Unobtainable: All systems reviewed & are unremarkable except as noted in HPI and below Constitutional Constitutional: Denies chills, Denies fatigue, Denies fever(s), Denies frequent falls, Denies lethargy and Denies weakness Eyes Eyes: Denies change in vision, Denies eye discharge, Denies irritation and Denies loss of vision ENT Ears, Nose, Mouth, and Throat: Denies change in voice, Denies dizziness, Denies neck pain, Denies sore throat and Denies throat swelling Cardiovascular Cardiovascular: Denies chest pain, Denies irregular heart rhythm, Denies lightheadedness, Denies palpitations, Reports dyspnea on exertion and Denies orthopnea Respiratory Respiratory: Denies cough, Reports dyspnea on exertion and Denies wheezing Gastrointestinal Gastrointestinal: Denies abdominal pain, Denies change in bowel habits, Reports dyspepsia, Denies diarrhea, Denies nausea and Denies vomiting Genitourinary Genitourinary: Denies hematuria, Denies flank pain, Denies urinary incontinence and Denies urinary urgency Musculoskeletal Musculoskeletal: Denies back pain, Denies muscle weakness, Denies neck pain, Denies numbness and Denies tingling Integumentary/Breasts Skin/Breast: Denies pruritus, Denies erythema, Denies rash and Denies wounds Neurologic Neurologic: Denies behavioral changes, Denies confusion, Denies dizziness, Denies frequent falls, Denies loss of vision, Denies numbness, Denies tingling and Denies weakness Psychiatric Psychiatric: Denies anxiety, Denies behavioral changes, Denies confusion, Denies depression, Denies homicidal ideation and Denies suicidal ideation Endocrine Endocrine: Denies fatigue, Denies flushing and Denies palpitations Hematologic/Lymphatic Hematologic/Lymphatic: Denies easy bruising Allergic/Immunologic Allergic/Immunologic: Denies urticaria, Denies throat swelling and Denies wheezing Patient History <Samuel Vu PA-C - Last Filed: 10/01/21 13:36> Medical History Atrophic vaginitis Back stiffness Bilateral anterior knee pain Bilateral arm pain Encounter for vitamin deficiency screening Family history of colonic polyps Insomnia JOSHUA (obstructive sleep apnea) Palpitations Physical exam Screening for hyperlipidemia Tennis elbow Social History household members: spouse Smoking Status: Former smoker alcohol intake: current Smoking Status: Former smoker alcohol intake frequency: 3 or more drinks per day Alcohol type: beer Substance Use Type: marijuana Exam <Samuel Vu PA-C - Last Filed: 10/01/21 13:36> Initial Vital Signs Initial Vital Signs: Vital Signs Temperature 98.0 F 10/01/21 11:24 Pulse Rate 77 10/01/21 11:24 Respiratory Rate 16 10/01/21 11:24 Blood Pressure 161/72 H 10/01/21 11:24 Pulse Oximetry 100 10/01/21 11:24 Const General: cooperative, healthy appearing, comfortable and well developed Nutritional Appearance: average body habitus Orientation: Orientation [facility] Head: normal to inspection, normocephalic and atraumatic Ears: hearing grossly normal bilaterally and external ears normal Nose: external nose normal and nares normal Face and sinus: normal facial exam and sinuses nontender Chest Chest: normal inspection of the chest and normal palpation of entire chest wall Resp Effort & Inspection: normal respiratory effort and able to speak in complete sen tences Auscultation: clear to auscultation bilaterally Percussion: percussion normal Cardio Palpation: normal PMI Rate: bradycardic Rhythm: regular rhythm Heart Sounds: S1 normal and S2 normal Pulses: radial pulses present Skin General: no rashes or lesions noted Neuro General: patient alert, patient awake, patient oriented x3, moves all extremities and CN's II-XI intact bilaterally <Moiz Benton MD - Last Filed: 10/08/21 22:25> Initial Vital Signs Initial Vital Signs: Vital Signs Temperature 98.0 F 10/01/21 11:24 Pulse Rate 77 10/01/21 11:24 Respiratory Rate 16 10/01/21 11:24 Blood Pressure 161/72 H 10/01/21 11:24 Pulse Oximetry 100 10/01/21 11:24 Scores <Samuel Vu PA-C - Last Filed: 10/01/21 13:36> HEART Score Heart Score history: Slightly Suspicious Heart Score EKG: Normal Heart Score Age: 45-64 years old Heart Score risk factors: No known risk factors Heart Score troponin: < or = to normal limit Heart Score Total: 1 <Moiz Benton MD - Last Filed: 10/08/21 22:25> HEART Score Heart Score Total: 1 Course <Samuel Vu PA-C - Last Filed: 10/01/21 13:36> Orders Ordered: ED Orders 10/01/21 11:34 XR chest 1V Stat EKG-12 Lead Stat 10/01/21 11:45 Complete Blood Count AUTO DIFF Stat Comprehensive Metabolic Panel Stat Lipase Stat Magnesium Stat Troponin & CK Cardiac Panel Stat Vital Signs Vital signs: Vital Signs - 8 hr 10/01/21 11:24 10/01/21 11:57 10/01/21 12:00 Temperature 98.0 F Pulse Rate 77 63 61 Respiratory Rate 16 15 17 Blood Pressure 161/72 H 134/66 Pulse Oximetry 100 100 99 10/01/21 12:30 10/01/21 13:42 Temperature Pulse Rate 62 62 Respiratory Rate 15 16 Blood Pressure 124/77 139/73 Pulse Oximetry 99 100 <Moiz Benton MD - Last Filed: 10/08/21 22:25> Course Course Narrative: October 01, 2021 3 pm. left voicemail for pt to call us back. we paged dr wu for more office and hospital records from [facility], pt sees cardio dr foley at [facility] 3:36 p.m.. Left voicemail for patient to return back to the emergency department for further testing and possible echocardiogram/stress test. I did receive some records from [facility] on-call, dr wu, pt sees dr foley for pvc hx, had ablation last year. Medical records here show there was a non- nuclear stress test treadmill done August 05, 2020 as well as an echocardiogram April 22, 2020. Stress test was done at [facility] 4:25 p.m.. I spoke with patient by phone, she agrees to come back through the emergency department for admission or possibly be directly admitted. I told her I will call her back to see if we can do a direct admit. 4:58 p.m.. I spoke with patient by phone. I informed her she needs to be admitted tonight for observation and stress test and echocardiogram in the morning. I tried to do direct admit to the hospitalist but Dr Dyer was unable to do so. I informed patient we could have her come through the emergency department and there is a room ready and available for her for admission. She states she does not want to come in for admission today/tonight. She is up in [place] for the weekend. I informed her if she was not feeling well, as I spoke with her earlier that she should be admitted and at that time she agreed. Risk of heart attack arrhythmia are concerns, she is to return immediately if she changes her mind. She states that she wanted to come back next week. Moiz Benton MD Orders Ordered: ED Orders 10/01/21 11:34 XR chest 1V Stat EKG-12 Lead Stat 10/01/21 11:45 Complete Blood Count AUTO DIFF Stat Comprehensive Metabolic Panel Stat Lipase Stat Magnesium Stat Troponin & CK Cardiac Panel Stat Vital Signs Vital signs: Vital Signs - 8 hr 10/01/21 11:24 10/01/21 11:57 10/01/21 12:00 Temperature 98.0 F Pulse Rate 77 63 61 Respiratory Rate 16 15 17 Blood Pressure 161/72 H 134/66 Pulse Oximetry 100 100 99 10/01/21 12:30 10/01/21 13:42 Temperature Pulse Rate 62 62 Respiratory Rate 15 16 Blood Pressure 124/77 139/73 Pulse Oximetry 99 100 MDM - Chest Pain <Samuel Vu PA-C - Last Filed: 10/01/21 13:36> Differential Diagnosis Differential diagnosis: Likely chest pain Lab Data Result diagrams: 10/01/21 11:45 10/01/21 11:45 Labs: Lab Results 10/01/21 10/01/21 Range/Units 11:45 11:45 WBC 4.5 (4.5-11.0) X10^3/uL RBC 4.22 (4.0-5.2) X10^6/uL Hgb 13.2 (12.0-16.0) g/dL Hct 37.7 (36-46) % MCV 89.4 (80-100) fL MCH 31.2 (26-34) PG MCHC 34.9 (30-36) % RDW 12.6 (11.6-14.8) % Plt Count 219 (150-400) X10^3/uL Neut % (Auto) 44.0 L (50-75) % Lymph % (Auto) 42.6 H (25-40) % [place] % (Auto) 8.8 (3-14) % Eos % (Auto) 3.3 (2-4) % Baso % (Auto) 1.3 (0-2) % Neut # (Auto) 2000 (0464-4654) /uL Lymph # (Auto) 1900 (0043-3037) /uL [place] # (Auto) 400 (0-900) /uL Eos # (Auto) 200 (0-450) /uL Baso # (Auto) 100 (0-100) /uL Sodium 140 (137-145) mmol/L Potassium 3.9 (3.4-5.1) mmol/L Chloride 106 (98-107) mmol/L Carbon Dioxide 26 (22-32) mmol/L BUN 16 (7-17) mg/dL Creatinine 0.57 (0.52-1.04) mg/dL Estimated GFR > 60.0 (>60) mL/min BUN/Creatinine Ratio 28.1 H (6-22) Glucose 77 L (80-110) mg/dL Calcium 9.1 (8.4-10.2) mg/dL Magnesium 1.9 (1.6-2.3) mg/dL Total Bilirubin 0.7 (0.2-1.3) mg/dL AST 29 (14-36) IU/L ALT 19 (<35) IU/L Alkaline Phosphatase 57 (38-126) U/L Total Creatine Kinase 58 (30-135) U/L CK-MB (CK-2) TNP CK-MB (CK-2) Rel Index TNP Troponin I < 0.012 (0.01-0.034) ng/mL Total Protein 7.7 (6.3-8.2) g/dL Albumin 4.6 (3.5-5.0) g/dL Globulin 3.1 (1.7-4.1) g/dL Albumin/Globulin Ratio 1.5 (1.0-2.8) Lipase 54 (23-300) U/L Imaging Data Chest x-ray: Radiologist's Impression: PROCEDURE:? XR CHEST 1V ? INDICATIONS:? chest pain ? TECHNIQUE:? One view of the chest was acquired.? ? COMPARISON:? [facility], CR, XR CHEST 1V, 06/19/2020, 13:10. ? FINDINGS:? ? Surgical changes and devices:? None.? ? Lungs and pleura:? Lungs are clear.? No pleural effusions or pneumothorax.? ? Mediastinum:? Mediastinal contours appear normal.? Heart size is normal.? ? Bones and chest wall:? Old healed right posterior 5th through 9th rib fractures are seen. ?No suspicious bony lesions.? Overlying soft tissues appear unremarkable.? ? IMPRESSION:? No acute cardiopulmonary pathology.? Old healed right posterior rib fractures. ? ? Dictated by: Tom Mandel M.D. on 10/01/2021 at 12:23 ? ? Approved by: Tom Mandel M.D. on 10/01/2021 at 12:24?? ECG Data Attestation: I personally reviewed and interpreted this ECG as follows: Prior ECG tracings: not available for review Interpretation: Sinus bradycardia with no acute changes MDM Narrative Medical decision making narrative: Patient was evaluated for chest pain. Patient reports having a brief episode of tachycardia in the middle the night with some associated shortness of breath with activity during her walk today. Neither of these symptoms repeated or were present during her presentation in the ED. her only complaint is some epigastric pain. EKG and lab work is unremarkable with no acute findings. Patient had heart score of 1. Based on time line of symptoms and negative enzymes as feasible the patient be discharged home can contact her cardiology office for follow-up and further evaluation. I mentioned that I would recommend a once daily Pepcid for the next week and have this showed improvement in her symptoms that she should consider continuing this medication. Patient will be discharged home. <Moiz Benton MD - Last Filed: 10/08/21 22:25> Lab Data Labs: Lab Results 10/01/21 10/01/21 Range/Units 11:45 11:45 WBC 4.5 (4.5-11.0) X10^3/uL RBC 4.22 (4.0-5.2) X10^6/uL Hgb 13.2 (12.0-16.0) g/dL Hct 37.7 (36-46) % MCV 89.4 (80-100) fL MCH 31.2 (26-34) PG MCHC 34.9 (30-36) % RDW 12.6 (11.6-14.8) % Plt Count 219 (150-400) X10^3/uL Neut % (Auto) 44.0 L (50-75) % Lymph % (Auto) 42.6 H (25-40) % [place] % (Auto) 8.8 (3-14) % Eos % (Auto) 3.3 (2-4) % Baso % (Auto) 1.3 (0-2) % Neut # (Auto) 2000 (8581-2907) /uL Lymph # (Auto) 1900 (1556-7224) /uL [place] # (Auto) 400 (0-900) /uL Eos # (Auto) 200 (0-450) /uL Baso # (Auto) 100 (0-100) /uL Sodium 140 (137-145) mmol/L Potassium 3.9 (3.4-5.1) mmol/L Chloride 106 (98-107) mmol/L Carbon Dioxide 26 (22-32) mmol/L BUN 16 (7-17) mg/dL Creatinine 0.57 (0.52-1.04) mg/dL Estimated GFR > 60.0 (>60) mL/min BUN/Creatinine Ratio 28.1 H (6-22) Glucose 77 L (80-110) mg/dL Calcium 9.1 (8.4-10.2) mg/dL Magnesium 1.9 (1.6-2.3) mg/dL Total Bilirubin 0.7 (0.2-1.3) mg/dL AST 29 (14-36) IU/L ALT 19 (<35) IU/L Alkaline Phosphatase 57 (38-126) U/L Total Creatine Kinase 58 (30-135) U/L CK-MB (CK-2) TNP CK-MB (CK-2) Rel Index TNP Troponin I < 0.012 (0.01-0.034) ng/mL Total Protein 7.7 (6.3-8.2) g/dL Albumin 4.6 (3.5-5.0) g/dL Globulin 3.1 (1.7-4.1) g/dL Albumin/Globulin Ratio 1.5 (1.0-2.8) Lipase 54 (23-300) U/L Discharge Plan Departure Patient Disposition: Home Clinical Impression: Chest pain Instructions: DI for Chest Pain Activity Restrictions/Additional Instructions: You were seen today for your chest pain. As I had mentioned before I would recommend you take it once daily Pepcid for the next week and monitor your symptoms for any improvement. If you experience improvement and your pain subsides I would recommend he maintain the once daily Pepcid. Contact her cardiology office for follow-up and further evaluation. You can return to the ED if your symptoms worsen or you have any change in her symptom. Thank you for the opportunity to care for you today Prescriptions: No Action trazodone 50 mg tablet 50 mg PO BEDTIME PRN (Reason: insomnia) Qty: 90 3RF (DME) Massage therapy See Rx Instructions .Route .MEDSUPPLY Qty: 1 0RF Rx Instructions: As directed wmdnucyiknie-Vt-cmqf-minerals 1 tab PO DAILY 0RF Referrals: Delbert Duff DO [Primary Care Provider] - <Moiz Benton MD - Last Filed: 10/08/21 22:25> [facility]: I was immediately available in the department for consultation. This documentation has been reviewed and I agree with assessment and plan. Supervised by Moiz Benton MD
[2021-10-01 13:42] VITALS: BP 139/73; PULSE 62; RESP 16; O2SAT 100
== END 2021-10-01 13:42 | disposition home or self-care (01) ==
PROVIDERS: Emergency Medicine; Emergency Provider Physician Assistant; Family Provider Family Medicine; PCP Family Medicine
DX: R07.9 Chest pain, unspecified (principal); Z87.891 Personal history of nicotine dependence
CPT/HCPCS: 71045; 80053; 82550; 83690; 83735; 84484; 85025; 93005; 99283; 99284

== ENCOUNTER 2021-10-05 20:23 | Emergency (ER) | payer OTHER, SELFPAY ==
[2021-10-05] VITALS (8 sets, daily range): BP systolic 121–169; BP diastolic 61–94; PULSE 63–81; RESP 15–20; TEMP 37; O2SAT 97–98; BMI 21.7
--- NOTE | 2021-10-05 21:04 | DI.RAD.S_ITS ---
PROCEDURE: XR CHEST 1V INDICATIONS: chest pain TECHNIQUE: One view of the chest was acquired. COMPARISON: [facility], CR, XR CHEST 1V, 10/01/2021, 12:13. FINDINGS: Surgical changes and devices: None. Lungs and pleura: Lungs are clear. No pleural effusions or pneumothorax. Mediastinum: Mediastinal contours appear normal. Heart size is normal. Bones and chest wall: No suspicious bony lesions. There are a few old healed right posterior rib fractures redemonstrated. Overlying soft tissues appear unremarkable. IMPRESSION: 1. No acute cardiopulmonary disease. Dictated by: Shola Turner M.D. on 10/05/2021 at 22:08 Approved by: Shola Turner M.D. on 10/05/2021 at 22:09
[2021-10-05 21:09] LABS: Add Manual Diff / Slide Review NO; Basophils Absolute Auto 100 /uL (0-100); Basophils Percent Auto 1.7 % (0-2); Eosinophils Absolute Auto 200 /uL (0-450); Eosinophils Percent Auto 3.3 % (2-4); Hemoglobin 13.7 g/dL (12.0-16.0); Lymphocytes Absolute Auto 2800 /uL (1100-4500); Lymphocytes Percent Auto 40.6 % (25-40); Mean Corpuscular Hemoglobin 31.6 PG (26-34); Mean Corpuscular Volume 90.2 fL (80-100); Monocytes Absolute Auto 500 /uL (0-900); Monocytes Percent Auto 7.6 % (3-14); Neutrophils Absolute Auto 3200 /uL (1500-7000); Neutrophils Percent Auto 46.8 % (50-75); Platelet Count 247 X10^3/uL (150-400); Red Blood Cell Count 4.32 X10^6/uL (4.0-5.2); Red Cell Distribution Width 12.2 % (11.6-14.8); White Blood Cell Count 6.9 X10^3/uL (4.5-11.0)
[2021-10-05 21:15] LABS: Alanine Aminotransferase 20 IU/L (<35); Albumin 4.7 g/dL (3.5-5.0); Albumin Globulin Ratio 1.4 (1.0-2.8); Alkaline Phosphatase 61 U/L (38-126); Aspartate Aminotransferase 31 IU/L (14-36); BUN Creatinine Ratio 28.8 (6-22); Bilirubin Total 0.4 mg/dL (0.2-1.3); Blood Urea Nitrogen 19 mg/dL (7-17); Carbon Dioxide 25 mmol/L (22-32); Chloride 107 mmol/L (98-107); Creatine Kinase 53 U/L (30-135); Estimated Glomerular Filt Rate > 60.0 mL/min (>60); Globulin 3.4 g/dL (1.7-4.1); Glucose 120 mg/dL (80-110); HEMOLYSIS < 15 (0-50); Lipase 81 U/L (23-300); Magnesium 1.9 mg/dL (1.6-2.3); Potassium 3.8 mmol/L (3.4-5.1); Sodium 141 mmol/L (137-145); Total Protein 8.1 g/dL (6.3-8.2)
[2021-10-05 21:26] LABS: Troponin I < 0.012 ng/mL (0.01-0.034)
--- NOTE | 2021-10-05 22:06 | ED.CHESTPAIN ---
HPI - Chest Pain General Chief Complaint: Chest Pain Stated Complaint: CHEST ACHES Time Seen by Provider: 10/05/21 21:46 History of Present Illness HPI narrative: The patient presents with chest pain occurring all across her precordium for about 1 week. The pain is variable. She has no palpitations. She has no radiation of pain to her back or neck or left arm. She has no dyspnea. She has a history of ablation for bigeminy October 2020. She was seen here 4 days ago with similar complaints. Cardiac workup was benign last week. Cardiology was consulted. There were several attempts to call the patient as there was a suggestion she should be admitted and an echo and stress test should be done. She declined at that time, she was out of town. She stated should like to do this later. She returns now with similar chest discomfort. She has no cough or URI congestion. She has no history of CAD/NC. She says she tried to call her collision center manager, again was referred back here. Given the situation described, I consulted Cardiology after the ER evaluation. She has what appears to be chest wall discomfort. Her EKG is normal. Cardiac enzymes are reassuring. She had a nuclear stress test August 2020. The collision center manager I spoke with, Dr. Fuentes, reported she did quite well. Additionally an echocardiogram from April 2020 showed no significant abnormalities. Related Data Home Medications Medication Instructions Recorded Confirmed uktunzslwpep-Et-rbyw-minerals 1 tab PO DAILY 01/07/20 03/18/21 [Maximum Daily Multivitamin] Previous Rx's Medication Instructions Recorded trazodone 50 mg tablet 50 mg PO BEDTIME PRN #90 tab 09/17/21 Massage therapy #1 ea 10/05/21 Allergies Allergy/AdvReac Type Severity Reaction Status Date / Time codeine AdvReac Intermediate nausea Verified 03/18/21 14:15 anesthesia AdvReac Vomiting Uncoded 03/18/21 14:15 Review of Systems Constitutional Constitutional: Denies body ache(s), Denies chills, Denies fatigue and Denies fever(s) Eyes Eyes: Denies blurry vision and Denies change in vision ENT Ears, Nose, Mouth, and Throat: Denies halitosis, Denies epistaxis, Denies sinus pain and Denies sinus pressure Cardiovascular Cardiovascular: Reports as per HPI, Reports chest pain, Denies syncope, Denies rapid heart rate and Denies dyspnea Respiratory Respiratory: Denies chest congestion, Denies cough and Denies dyspnea Gastrointestinal Gastrointestinal: Denies abdominal pain and Denies nausea Musculoskeletal Musculoskeletal: Denies muscle cramps and Denies numbness Comments: No lower extremity edema Integumentary/Breasts Skin/Breast: Denies rash Neurologic Neurologic: Denies confusion, Denies syncope and Denies numbness Psychiatric Psychiatric: Denies anxiety, Denies confusion and Denies depression Endocrine Endocrine: Denies fatigue Hematologic/Lymphatic On Anticoagulants: No Patient History Medical History Atrophic vaginitis Back stiffness Bilateral anterior knee pain Bilateral arm pain Encounter for vitamin deficiency screening Family history of colonic polyps Insomnia JOSHUA (obstructive sleep apnea) Palpitations Physical exam Screening for hyperlipidemia Tennis elbow Social History household members: spouse Smoking Status: Former smoker alcohol intake: current Smoking Status: Former smoker alcohol intake frequency: 3 or more drinks per day Alcohol type: beer Substance Use Type: marijuana Exam Initial Vital Signs Initial Vital Signs: Vital Signs Temperature 98.6 F 10/05/21 20:27 Pulse Rate 81 10/05/21 20:27 Respiratory Rate 20 10/05/21 20:27 Blood Pressure 169/87 H 10/05/21 20:27 Pulse Oximetry 98 10/05/21 20:27 Const General: cooperative and healthy appearing [facility] Head: normocephalic and atraumatic Face and sinus: normal facial exam and sinuses nontender Mouth: oral mucosae normal Throat: posterior oropharynx normal Eyes General: appearance normal, both eyes and all related structures Neck Neck: normal visual inspection and No JVD Chest Other: Reproducible chest wall tenderness in the midsternum. Resp Effort & Inspection: normal respiratory effort Auscultation: clear to auscultation bilaterally Cardio Rate: regular rate Rhythm: regular rhythm Heart Sounds: S1 normal, S2 normal, no click, no murmurs and no rubs GI Inspection: normal to inspection Palpation: soft and No tender Auscultation: normal bowel sounds Back/Spine/Pelvis Back: normal to inspection Skin General: no rashes or lesions noted Neuro General: patient alert, patient awake, patient oriented x3 and no focal motor deficits Extrem General: normal to inspection, no pedal edema and no calf tenderness Psych Mental Status: mental status grossly normal Course Course Course Narrative: The current evaluation, her recent evaluation, in her known cardiac history was discussed with the on-call collision center manager, Dr. Thornton. She is clinically stable and instructed to follow up with her PCM. The case was discussed with the on-call physician, Dr. Pérez. He will make the patient's PCM, Dr. Duff, aware of the patient's recent clinical issues and facilitate follow-up. Orders Ordered: Discontinued Medications Ketorolac Tromethamine (Ketorolac 30 Mg/Ml Vial) 15 mg IV NOW ONE Stop: 10/05/21 22:33 Last Admin: 10/05/21 22:43 Dose: 15 mg Documented by: KIYA Vital Signs Vital signs: Vital Signs - 8 hr 10/05/21 23:00 10/05/21 23:30 10/06/21 00:00 Pulse Rate 63 65 64 Respiratory Rate 16 16 15 Blood Pressure 131/79 135/73 130/66 Pulse Oximetry 98 98 98 MDM - Chest Pain Lab Data Result diagrams: 10/05/21 20:50 10/05/21 20:50 Labs: Lab Results 10/05/21 10/05/21 10/05/21 Range/Units 20:50 20:50 20:50 WBC 6.9 (4.5-11.0) X10^3/uL RBC 4.32 (4.0-5.2) X10^6/uL Hgb 13.7 (12.0-16.0) g/dL Hct 39.0 (36-46) % MCV 90.2 (80-100) fL MCH 31.6 (26-34) PG MCHC 35.0 (30-36) % RDW 12.2 (11.6-14.8) % Plt Count 247 (150-400) X10^3/uL Neut % (Auto) 46.8 L (50-75) % Lymph % (Auto) 40.6 H (25-40) % [place] % (Auto) 7.6 (3-14) % Eos % (Auto) 3.3 (2-4) % Baso % (Auto) 1.7 (0-2) % Neut # (Auto) 3200 (6960-8389) /uL Lymph # (Auto) 2800 (2331-4627) /uL [place] # (Auto) 500 (0-900) /uL Eos # (Auto) 200 (0-450) /uL Baso # (Auto) 100 (0-100) /uL D-Dimer < 200 (<230) ng/mL Sodium 141 (137-145) mmol/L Potassium 3.8 (3.4-5.1) mmol/L Chloride 107 (98-107) mmol/L Carbon Dioxide 25 (22-32) mmol/L BUN 19 H (7-17) mg/dL Creatinine 0.66 (0.52-1.04) mg/dL Estimated GFR > 60.0 (>60) mL/min BUN/Creatinine Ratio 28.8 H (6-22) Glucose 120 H (80-110) mg/dL Calcium 9.0 (8.4-10.2) mg/dL Magnesium 1.9 (1.6-2.3) mg/dL Total Bilirubin 0.4 (0.2-1.3) mg/dL AST 31 (14-36) IU/L ALT 20 (<35) IU/L Alkaline Phosphatase 61 (38-126) U/L Total Creatine Kinase 53 (30-135) U/L CK-MB (CK-2) TNP CK-MB (CK-2) Rel Index TNP Troponin I < 0.012 (0.01-0.034) ng/mL Total Protein 8.1 (6.3-8.2) g/dL Albumin 4.7 (3.5-5.0) g/dL Globulin 3.4 (1.7-4.1) g/dL Albumin/Globulin Ratio 1.4 (1.0-2.8) Lipase 81 (23-300) U/L Imaging Data Chest x-ray: Radiologist's Impression: No acute cardiopulmonary disease. ECG Data Attestation: I personally reviewed and interpreted this ECG as follows: (Normal sinus rhythm rate 69 beats per minute. Normal intervals. No ectopy. No acute ST T wave changes.) Discharge Plan Departure Patient Disposition: Home Clinical Impression: Atypical chest pain Instructions: DI for Atypical Chest Pain Activity Restrictions/Additional Instructions: I discussed your case with Dr. Thornton, collision center manager. He is a partner of Dr. Viveros, your collision center manager. He has reviewed your care in the cardiology clinic including your most recent echo and stress test. [facility] as test from 4 days [facility]. There is no need for immediate hospitalization. I also discussed your case with Dr. Pérez, station usher for Dr. Duff. You have undergone 2 negative cardiology ER evaluations 4 days apart. Cardiology suggested ongoing evaluation as an outpatient managed by your PCM. Dr. Pérez will communicate with her PCM, Dr. Duff, and make arrangements for you to follow-up in clinic. Return here if you have significant increasing chest pain, or difficulty breathing Prescriptions: No Action trazodone 50 mg tablet 50 mg PO BEDTIME PRN (Reason: insomnia) Qty: 90 3RF (DME) Massage therapy See Rx Instructions .Route .MEDSUPPLY Qty: 1 0RF Rx Instructions: As directed ylvjydpztcub-Ll-jvhl-minerals 1 tab PO DAILY 0RF Referrals: Delbert Duff DO [Primary Care Provider] - Arnold Pérez MD [Physician] -
[2021-10-05] MEDS: KETOROLAC 30 MG/ML VIAL 15 MG IV (22:43)
[2021-10-05 22:46] LABS: D Dimer < 200 ng/mL (<230)
[2021-10-06] VITALS: BP 130/66; PULSE 64; RESP 15; O2SAT 98
== END 2021-10-06 00:23 | disposition home or self-care (01) ==
PROVIDERS: Emergency Provider Emergency Medicine; Family Provider Family Medicine; PCP Family Medicine
DX: R07.89 Other chest pain (principal); Z87.891 Personal history of nicotine dependence
CPT/HCPCS: 36415; 71045; 80053; 82550; 83690; 83735; 84484; 85025; 85379; 93005; 93010; 96374; 99284; J1885

== ENCOUNTER → 2021-10-09 16:47 | Outpatient (CLI) | payer OTHER, SELFPAY ==
--- NOTE | 2021-10-09 17:02 | DI.RAD.S_ITS ---
PROCEDURE: XR HIP W PEL IF DONE RT 2V INDICATIONS: painless lump proximal anterior thigh TECHNIQUE: AP pelvis with lateral view(s) of the right hip(s). COMPARISON: None. FINDINGS: Bones: No fractures or dislocations. Pelvic ring appears intact. No suspicious bony lesions. Soft tissues: The visualized bowel gas pattern is normal. No suspicious soft tissue calcifications. IMPRESSION: No acute osseous lesion. If symptoms and/or clinical suspicion for pathology persists, further assessment with advanced imaging (e.g. CT, MRI) should be considered. Dictated by: Ria Paredes MD, PhD on 10/09/2021 at 17:57 Approved by: Ria Paredes MD, PhD on 10/09/2021 at 17:57
[2021-10-09 17:40] LABS: C-Reactive Protein Quant < 0.5 mg/dL (<1.0)
[2021-10-09 18:02] LABS: Erythrocyte Sedimentation Rate 7 MM/HR (0-20)
[2021-10-13 13:36] LABS: ANA Screen, IFA Negative (.)
== END ==
PROVIDERS: Family Provider Family Medicine; PCP Family Medicine; Referring Provider Family Medicine; Visit Provider Family Medicine
DX: R07.89 Other chest pain (principal); R07.81 Pleurodynia; M25.521 Pain in right elbow
CPT/HCPCS: 36415; 73502; 85651; 86038; 86140

== ENCOUNTER → 2021-11-19 12:43 | Outpatient (CLI) | payer OTHER, SELFPAY ==
--- NOTE | 2021-11-19 12:44 | DI.US.S_ITS ---
PROCEDURE: US EXTREMITY NONVASC LOWER RT INDICATIONS: LUMP ON UPPER THIGH ANTERIOR TECHNIQUE: Real-time scanning was performed of the right thigh, with image documentation. COMPARISON: None. FINDINGS: 8.6 x 7.6 x 3.9 centimeter isoechoic mass corresponds to clinically palpable lesion. Doppler evaluation demonstrates no significant internal vascularity. No soft tissue edema associated with the lesion. IMPRESSION: Nonspecific 8.6 x 7.6 x 3.9 centimeter nonvascular right thigh mass. Decision to biopsy should be based on clinical assessment. Dictated by: Ria Paredes MD, PhD on 11/19/2021 at 16:04 Approved by: Ria Paredes MD, PhD on 11/19/2021 at 16:06
== END ==
PROVIDERS: Family Provider Family Medicine; PCP Family Medicine; Referring Provider Family Medicine; Visit Provider Family Medicine
DX: R22.41 Localized swelling, mass and lump, right lower limb (principal)
CPT/HCPCS: 76882

== ENCOUNTER → 2021-11-23 12:55 | Outpatient (CLI) | payer OTHER, SELFPAY ==
--- NOTE | 2021-11-23 12:57 | DI.RAD.S_ITS ---
PROCEDURE: XR RIBS RT MIN 3V W CXR 1V INDICATIONS: R anterior lower rib pain s/p trauma 1 wk ago. Pls R/O fx TECHNIQUE: 3 views of the right ribs were acquired, along with a single view chest. COMPARISON: None. FINDINGS: Motion artifact somewhat limits evaluation. Surgical changes and devices: None. Bones and chest wall: No acute fractures or dislocations. Healed posterior right upper rib fractures are noted. No suspicious bony lesions. Overlying soft tissues appear unremarkable. Lungs and pleura: No pleural effusions or pneumothorax. Lungs appear clear. Mediastinum: Mediastinal contours appear normal. Heart size is normal. IMPRESSION: No acute displaced rib fractures. No acute cardiopulmonary findings. Dictated by: Rachel Hernandez M.D. on 11/23/2021 at 13:50 Approved by: Rachel Hernandez M.D. on 11/23/2021 at 13:50
== END ==
PROVIDERS: Family Provider Family Medicine; PCP Family Medicine; Referring Provider Registered Nurse Diabetes Educator; Visit Provider Registered Nurse Diabetes Educator
DX: R07.81 Pleurodynia (principal)
CPT/HCPCS: 71101

== ENCOUNTER 2021-11-26 11:21 | Outpatient (CLI) | payer OTHER, SELFPAY | END 2021-12-01 13:42 | disposition home or self-care (01) | LOC: PHYS 11:21 | PROVIDERS: Family Provider Registered Nurse Diabetes Educator; PCP Family Medicine; Referring Provider Registered Nurse Diabetes Educator; Visit Provider Registered Nurse Diabetes Educator | DX: R20.2 Paresthesia of skin (principal); G56.03 Carpal tunnel syndrome, bilateral upper limbs | CPT/HCPCS: 95886; 95910 ==

== ENCOUNTER → 2022-03-10 10:37 | Outpatient (CLI) | payer OTHER, SELFPAY ==
--- NOTE | 2022-03-10 10:38 | DI.MRI.S_ITS ---
PROCEDURE: MR FEMUR RT WO/W CON INDICATIONS: Right anterior thigh mass TECHNIQUE: Noncontrast coronal T1 spin echo and STIR, sagittal T1 spin echo with fat saturation and STIR, axial T1 spin echo and T2 fast spin echo with fat saturation. After the administration of contrast, axial/sagittal/coronal T1 spin echo with fat saturation through the right thigh. COMPARISON: [facility], [place], US EXTREMITY NONVASC LOWER RT, 11/19/2021, 13:59. FINDINGS: Image quality: Excellent. Bones: The visualized bone marrow demonstrates normal signal on all sequences. The overlying cortex appears intact. No abnormal intraosseous enhancement. Soft tissues: There is a lobulated T1 and T2 hyperintense structure with thin well-defined capsule and internal septation occupying space between right gluteus medius and minimus muscles extending to anterior upper thigh measures up to 6.2 x 6.3 x 12.2 cm in largest transverse, AP and craniocaudal dimensions. After IV contrast infusion, there is capsular and internal septal enhancement. No discrete enhancing solid nodule is seen. Near complete suppression of signal is noted on fat suppressed sequences. No other soft tissue mass or fluid collection is seen. No definite muscle involvement of right thigh is noted. IMPRESSION: 1. 6.2 x 6.3 x 12.2 cm lobulated predominantly fat signal intensity structure in right anterior upper thigh soft tissue as described above and show subtle septal and peripheral enhancement. 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 Liposarcoma cannot be excluded. Consider biopsy or excision of this mass for more definitive diagnosis due to its size. 2. No adjacent muscle or tendon involvement is seen. No other soft tissue mass or fluid collection is noted. 3. No marrow edema. No suspicious bony lesion. No fracture or dislocation. Dictated by: Tom Mandel M.D. on 03/10/2022 at 16:34 Approved by: Tom Mandel M.D. on 03/10/2022 at 16:42
== END ==
PROVIDERS: Family Provider Registered Nurse Diabetes Educator; PCP Family Medicine; Referring Provider Surgery; Visit Provider Surgery
DX: R22.41 Localized swelling, mass and lump, right lower limb (principal)
CPT/HCPCS: 73720; A9579

== ENCOUNTER → 2022-03-22 09:17 | Outpatient (CLI) | payer OTHER, SELFPAY ==
[2022-03-22 12:56] LABS: COVID19 -Nasal RAPID Negative (Negative)
== END ==
PROVIDERS: Family Provider Registered Nurse Diabetes Educator; PCP Family Medicine; Visit Provider Surgery
DX: Z01.812 Encounter for preprocedural laboratory examination (principal); Z20.822 Contact with and (suspected) exposure to COVID-19
CPT/HCPCS: 87635; C9803

== ENCOUNTER 2022-03-23 08:11 | Day surgery (SDC) | payer OTHER, SELFPAY ==
[2022-03-16 13:50] VITALS: BMI 21.7
[2022-03-23] VITALS (8 sets, daily range): BP systolic 95–120; BP diastolic 57–75; PULSE 56–63; RESP 12–18; TEMP 36.1–36.9; O2SAT 97–99; BMI 21.7
[2022-03-23] MEDS: LACTATED RINGERS 1,000 ML 42 ML IV (08:56)
[2022-03-23] MEDS: SCOPOLAMINE 1 PATCH TOP (08:59)
--- NOTE | 2022-03-23 09:02 | SUR.PREOP ---
Scoplalamne placed as instructed to r ear.
--- NOTE | 2022-03-23 09:23 | PM.HP.1 ---
History of Present Illness History of Present Illness Date Patient Seen: 03/23/22 Time Patient Seen: 09:23 Chief complaint: Excisional Biopsy of Rt Thigh Mass Narrative: Marion is here for her excision biopsy of right thigh mass today. Please see office note from February for details. She believes the mass has gotten somewhat larger since then. It is also starting to cause some pain and discomfort radiating down her right inner thigh. Patient History Medical History Anesthesia complication Atrophic vaginitis Back stiffness Bilateral anterior knee pain Bilateral arm pain Body posture problem Cervical somatic dysfunction Cranial somatic dysfunction Encounter for vitamin deficiency screening Family history of colonic polyps Insomnia Lumbar region somatic dysfunction Lump of thigh JOSHUA (obstructive sleep apnea) Pain of sternum Palpitations Paresthesia and pain of both upper extremities Pelvic somatic dysfunction Physical exam Rib pain Right elbow pain Sacral region somatic dysfunction Screening for hyperlipidemia Segmental and somatic dysfunction of abdomen and other regions Tennis elbow Thoracic region somatic dysfunction Upper extremity somatic dysfunction Family & Social History Family History Mother Hypertension Sister Breast cancer Social History: household members spouse Tobacco & Substance use: Tobacco type cigarettes Smoking Status Former smoker alcohol intake current alcohol intake frequency a few times a week Substance Use Type marijuana Meds Home Medications and Allergies Home Medications Medication Instructions Recorded Confirmed Type vnyrpcqgutvi-Cw-tguy-minerals 1 tab PO DAILY 01/07/20 03/23/22 History [Maximum Daily Multivitamin] Massage therapy #1 ea 10/05/21 03/22/22 Rx Allergies Allergy/AdvReac Type Severity Reaction Status Date / Time codeine AdvReac Intermediate nausea Verified 03/22/22 11:36 anesthesia AdvReac Vomiting Uncoded 03/22/22 11:36 Exam Vital Signs (past 8 hours): - 03/23/22 08:37 Temperature 97.6 F Pulse Rate 61 Respiratory Rate 18 Blood Pressure 109/70 Pulse Oximetry 99 Oxygen Delivery Method Room Air Oxygen Delivery Method Room Air Narrative Exam Narrative: There is a 5-8 cm firm right thigh mass Assessment & Plan Assessment and plan (1) Mass of right thigh: Status: Acute Plan We discussed the risks and benefits of excisional biopsy of right thigh mass and she would like to proceed. We discussed about the possibility of seroma filling the cavity for the first few weeks after surgery. Time Spent With Patient Critical Care time: I spent a total of [] minutes of critical care time on this patient's care today; this time is exclusive of procedural time.
[2022-03-23] MEDS: CEFAZOLIN 2 GM/100 ML PREMIX 100 ML IV (09:57)
--- NOTE | 2022-03-23 10:18 | SUR.OPER ---
Supine on padded OR bed, head on pillow, arms secured on padded arm boards at <90 degrees abduction, legs uncrossed, safety belt at thigh, tape over blanket over lower legs. Gel pad under bilateral heels, pillow under knees.
[2022-03-23] MEDS: BUPIVACAINE 0.5% W/ EPI (PF) 30 ML VIAL INJ (10:29)
--- NOTE | 2022-03-23 10:57 | P.OP_ITS ---
Operative Date/Time/Diagnoses Date of procedure: 03/23/22 Time of procedure: 10:57 Pre-op diagnosis: Right thigh mass Post-op diagnosis: same Procedure & Clinicians Procedure: Excisional biopsy of right thigh mass Same procedure as scheduled: Yes Surgeon: Dean Mendoza Compensation Intern: Zonia Lowe Operative Notes Procedure in detail: The patient was brought to the operating room, placed on the table in the supine position and general anesthesia was induced. The right anterior thigh was prepped and draped in the usual fashion. 10 cm axial incision was made over the mass and Bovie was used to dissect down through the subcutaneous adipose tissue. We encountered the tensor fascia carlo sa of first and this was also divided axially and the muscle fibers were split with a Peon. We then encountered the large lipoma who is periphery was quite discrete and easily from the surrounding muscles. As expected the mass extended in a superior and deep direction to the lateral aspect of the iliac. A few bleeders were cauterized, one bleeder was addressed with a [id number] stitch of 3-0 Vicryl. And the mass was removed intact. The mass appeared be a lipoma. We injected some additional local into the deep tissue planes. We then closed the fascia with a running 2-0 Vicryl. Additional local was injected into the subcutaneous layers and dermis and the dermis was closed with multiple interrupted 3-0 Vicryl sutures followed by a running 4-0 Monocryl subcuticular closure. Steri-Strips were applied followed by a Telfa dressing. EBL: 15 mL Specimen: Right thigh mass Post-operative Condition: stable Disposition: PACU
[2022-03-23] MEDS: OXYCODONE IR 5 MG TABLET PO (11:39)
--- NOTE | 2022-03-23 12:05 | SUR.PHASEII ---
Oxycodone provided for pain. Call light within reach. Sourav Rachel, notified of patient status.
--- NOTE | 2022-03-23 12:40 | SUR.PHASEII ---
Waiting for ride to arrive from pharmacy.
== END 2022-03-23 12:50 | disposition home or self-care (01) ==
PROVIDERS: Family Provider Registered Nurse Diabetes Educator; PCP Family Medicine; Referring Provider Surgery; Visit Provider Surgery
PROC: (CPT 27339; principal; 2022-03-23 10:00)
DX: D17.23 Benign lipomatous neoplasm of skin and subcutaneous tissue of right leg (principal); G47.33 Obstructive sleep apnea (adult) (pediatric)
CPT/HCPCS: 27339; J0690; J1100; J2250; J2405; J2704; J3010

== ENCOUNTER → 2023-03-11 07:14 | Outpatient (CLI) | payer OTHER, SELFPAY ==
[2023-03-11 08:45] LABS: Add Manual Diff / Slide Review NO; Basophils Absolute Auto 0 /uL (0-100); Basophils Percent Auto 0.8 % (0-2); Eosinophils Absolute Auto 300 /uL (0-450); Eosinophils Percent Auto 5.4 % (2-4); Hematocrit 39.7 % (36-46); Hemoglobin 13.8 g/dL (12.0-16.0); Lymphocytes Absolute Auto 2300 /uL (1100-4500); Lymphocytes Percent Auto 42.7 % (25-40); Mean Corpuscular HGB Conc 34.7 % (30-36); Mean Corpuscular Hemoglobin 31.5 PG (26-34); Mean Corpuscular Volume 90.6 fL (80-100); Monocytes Absolute Auto 400 /uL (0-900); Monocytes Percent Auto 7.2 % (3-14); Neutrophils Absolute Auto 2400 /uL (1500-7000); Neutrophils Percent Auto 43.9 % (50-75); Platelet Count 242 X10^3/uL (150-400); Red Blood Cell Count 4.38 X10^6/uL (4.0-5.2); Red Cell Distribution Width 12.3 % (11.6-14.8); White Blood Cell Count 5.4 X10^3/uL (4.5-11.0)
[2023-03-11 09:39] LABS: Alanine Aminotransferase 19 IU/L (<35); Albumin 4.3 g/dL (3.5-5.0); Albumin Globulin Ratio 1.6 (1.0-2.8); Alkaline Phosphatase 49 U/L (38-126); Aspartate Aminotransferase 25 IU/L (14-36); BUN Creatinine Ratio 28.6 (6-22); Bilirubin Total 0.5 mg/dL (0.2-1.3); Blood Urea Nitrogen 16 mg/dL (7-17); Calcium 8.8 mg/dL (8.4-10.2); Carbon Dioxide 26 mmol/L (22-32); Chloride 105 mmol/L (98-107); Cholesterol 208 mg/dL (140-199); Estimated Glomerular Filt Rate > 60 mL/min (>60); Globulin 2.7 g/dL (1.7-4.1); Glucose 93 mg/dL (80-110); HDL Cholesterol 50 mg/dL (40-60); HEMOLYSIS < 15 (0-50); LDL Cholesterol Calculated 131 mg/dL (<100); Potassium 4.2 mmol/L (3.4-5.1); Sodium 138 mmol/L (137-145); Triglycerides 137 mg/dL (35-150)
[2023-03-11 10:12] LABS: Thyroid Stimulating Hormone 2.25 uIU/mL (0.47-4.68)
[2023-03-11 10:26] LABS: Vitamin B12 694 pg/mL (239-931)
== END ==
PROVIDERS: Family Provider Registered Nurse Diabetes Educator; PCP Family Medicine; Referring Provider Naturopath; Visit Provider Naturopath
DX: Z00.00 Encounter for general adult medical examination without abnormal findings (principal); R53.83 Other fatigue
CPT/HCPCS: 36415; 80053; 80061; 82607; 84443; 85025

== ENCOUNTER → 2023-04-21 07:17 | Outpatient (CLI) | payer OTHER, SELFPAY ==
--- NOTE | 2023-04-21 | DI.MG.S_ITS ---
BILATERAL DIGITAL SCREENING MAMMOGRAM 3D/2D WITH CAD: 04/21/2023 CLINICAL: Routine screening. Family history of breast cancer. Baseline exam. No prior exams were available for comparison. Both breasts are heterogeneously dense, which may obscure small masses (category c / 51-75% glandular tissue). Current study was also evaluated with a Computer Aided Detection (CAD) system. There is a benign calcification in the right breast. No significant masses, calcifications, or other findings are seen in either breast. IMPRESSION: BENIGN There is no mammographic evidence of malignancy. A 1 year screening mammogram is recommended. Based on Tyrer-Cuzick model (a risk assessment model), the patient's lifetime risk is 28.8% and her 10 year risk is 13.3%. If a patient has an elevated risk, a more comprehensive evaluation should be considered and/or a referral to a genetic counselor. The [place] [employer], [employer], and NCCN Guidelines advise the consideration of Breast MRI as an adjunct to screening mammography in patients whose Lifetime risk to develop breast cancer is 20% or higher. This exam was interpreted at Station ID: [id number]. NOTE: For mammograms, a report in lay terms will be sent to the patient. Approximately 15% of breast malignancies will not be visualized mammographically. In the management of a palpable breast mass, a negative mammogram must not discourage biopsy of a clinically suspicious lesion. Electronically Signed By: Rachel greenberg/albert:04/21/2023 16:10:01 letter sent: Normal Exam ACR BI-RADS Category 2: Benign Finding(s) [id number]
== END ==
PROVIDERS: Family Provider Registered Nurse Diabetes Educator; PCP Family Medicine; Referring Provider Naturopath; Visit Provider Naturopath
DX: Z12.31 Encounter for screening mammogram for malignant neoplasm of breast (principal); Z80.3 Family history of malignant neoplasm of breast
CPT/HCPCS: 77063; 77067